=== PATIENT | male | born 1980 | race Caucasian/White ===

== ENCOUNTER 2021-05-21 21:27 | Emergency (ER) | payer MEDICARE, SELFPAY ==
[2021-05-21 21:45] VITALS: BP 132/76; PULSE 87; RESP 18; TEMP 36.3; O2SAT 100; BMI 21.7
[2021-05-21 22:22] LABS: Amphetamines Screen Urine Negative (Negative); Barbiturates Screen Urine Negative (Negative); Benzodiazepines Screen Urine Negative (Negative); Cocaine Screen Urine Negative (Negative); Opiate Screen Urine Negative (Negative); PCP Screen Urine Negative (Negative); THC Screen Urine Negative (Negative)
--- NOTE | 2021-05-21 22:38 | W.ED.PSYCHS ---
HPI - Psych General: Chief Complaint: Psychiatric Symptoms Stated Complaint: schizophrenia Time Seen by Provider: 05/21/21 22:02 Source: patient Mode of arrival: ambulatory Limitations: no limitations History of Present Illness: 41-year-old male states that he was recently dropped off here from [place] about 3 days ago. He states he has a long history of schizophrenia and has been homeless for quite some time. Patient states that police picked him up tonight and brought him in. He states he has chronic schizophrenia states he has been hearing some voices but nothing new he denies any suicidal or homicidal ideations. He states he has been getting cold outside. Associated symptoms: Deny depression Review of Systems Const: Denies: fever(s), chills, body aches or change in appetite Eyes: Denies: blurry vision or eye discomfort ENMT: Denies: throat pain or dental pain Card: Denies: chest pain Resp: Denies: dyspnea GI: Denies: abdominal pain, nausea, vomiting or diarrhea : Denies: dysuria Musc: Denies: neck pain or back pain Skin/Breast: Denies: rash Neuro: Denies: headache(s) Psych: Denies: depression Mauro/Lymph: Denies: easy bruising All/Imm: Denies: urticaria PFSH ED PFSH: Medical History Schizophrenia Social History Smoking and tobacco status: current every day smoker Physical Exam Const: COMMON NORMALS: patient oriented x3 and healthy appearing GENERAL APPEARANCE: disheveled HENMT: COMMON NORMALS: normocephalic and atraumatic HEAD & SCALP: normocephalic and atraumatic Eye: COMMON NORMALS: Equal, round and reactive pupils present and EOMs intact bilaterally PUPIL: Yes Equal, round and reactive pupils present Neck/C-Spine: COMMON NORMALS: full ROM and supple Chest: COMMONS NORMALS: normal inspection of the chest and normal palpation of entire chest wall Resp: COMMON NORMALS: normal respiratory effort, No retractions, No use of accessory muscles and clear to auscultation bilaterally AUSCULTATION: clear to auscultation bilaterally Cardio: COMMON NORMALS: regular rate, regular rhythm and No murmurs present (Cardio) RATE: regular rate RHYTHM: regular rhythm GI: COMMON NORMALS: Normal to inspection, nondistended, normoactive bowel sounds present, Soft to palpation, non-tender and no masses PALPATION: Yes Soft to palpation Extremity: COMMON NORMALS: normal to inspection and full ROM Neuro: COMMON NORMALS: patient oriented x3, moves all extremities and no focal motor deficits Psych: COMMON NORMALS: mental status grossly normal, Normal thought process present and cooperative THOUGHT PROCESS: Normal thought process present Skin: COMMON NORMALS: no rashes or lesions noted and no wounds GENERAL SKIN EXAM: no rashes or lesions noted Course Vital Signs: Vital signs: Vital Signs Temperature 97.4 F L 05/21/21 21:45 Pulse Rate 87 05/21/21 21:45 Respiratory Rate 16 05/21/21 22:53 Blood Pressure 132/76 05/21/21 21:45 Pulse Oximetry 100 05/21/21 21:45 MDM - Psych Medical Decision Making Patient presents here with long history of schizophrenia he is also homeless he is got no suicidal homicidal ideation he appears to be at his baseline he did have him evaluated by psychiatrist Dr. Harris who also agrees he does not meet inpatient criteria patient feels improved is stable for discharge. Lab Data Laboratory Results Urine Opiates Screen Negative ng/mL (Negative) 05/21/21 22:06 Ur Barbiturates Screen Negative ng/mL (Negative) 05/21/21 22:06 Ur Phencyclidine Scrn Negative ng/mL (Negative) 05/21/21 22:06 Ur Amphetamines Screen Negative ng/mL (Negative) 05/21/21 22:06 U Benzodiazepines Scrn Negative ng/mL (Negative) 05/21/21 22:06 Urine Cocaine Screen Negative ng/mL (Negative) 05/21/21 22:06 U Marijuana (THC) Screen Negative ng/mL (Negative) 05/21/21 22:06 Discharge Plan Discharge Patient Disposition: Home Clinical Impression: Schizophrenia, Homelessness Discharge Orders: Discharge ED (Routine); Ordered 05/21/21 Ordered By: Duyen Anguiano Discharge Diet: Advance as tolerated Discharge Activity: Resume usual activity Patient Instructions: Schizophrenia (ED) Coding Level of Care Code ED Pattern Hanger for Macario Baker Exam Comprehensive
[2021-05-21 22:53] VITALS: RESP 16
== END 2021-05-21 22:53 | disposition home or self-care (01) ==
PROVIDERS: Emergency Provider Emergency Medicine
DX: F20.9 Schizophrenia, unspecified (principal); Z59.00 Homelessness unspecified; F17.210 Nicotine dependence, cigarettes, uncomplicated
CPT/HCPCS: 80306; 99281

== ENCOUNTER 2021-05-26 23:31 | Inpatient (IN) | payer MEDICARE, SELFPAY ==
[2021-05-26 23:47] VITALS: BP 151/62; PULSE 105; RESP 18; TEMP 36.8; O2SAT 94; BMI 22.4
--- NOTE | 2021-05-27 00:13 | XRR_ITS ---
PROCEDURE INFORMATION: Exam: XR Left Forearm Exam date and time: 05/27/2021 12:13 AM Age: 41 years old Clinical indication: Swelling; Arm, lower; Left; Additional info: Cellulitis TECHNIQUE: Imaging protocol: XR Left forearm. Views: 2 views. COMPARISON: No relevant prior studies available. FINDINGS: Bones/joints: No acute fracture. No dislocation. No reactive bony changes. Soft tissues: Soft tissue edema and thickening involving the proximal left forearm. Findings may be seen with edema/cellulitis. XR/XR forearm LT 2V [id number] IMPRESSION: Soft tissue edema and thickening involving the proximal left forearm. Findings may be seen with edema/cellulitis.
--- NOTE | 2021-05-27 00:25 | ED.C_ITS ---
HPI - Psych General: Chief Complaint: Psychiatric Symptoms Stated Complaint: Off Meds\Pshciatric Symtpoms Time Seen by Provider: 05/27/21 00:01 Source: patient Mode of arrival: ambulatory Limitations: no limitations History of Present Illness: 41-year-old male who moved here recently from [place] and is homeless. He states he has been having increasing suicidality he was seen here 5 days ago but states has not been able to get in anywhere seen anyone has been out of all of his medicines. He has no specific plan. States he has not been on his meds in months. States he also has a chronic wound to his left forearm he is unsure what had happened he says is been growing in size over the last month as well and is seeing no treatment he has had no fever no pain no drainage Associated symptoms: Reports depression and suicidal ideation Review of Systems Const: Denies: fever(s), chills, body aches or change in appetite Eyes: Denies: blurry vision or eye discomfort ENMT: Denies: throat pain or dental pain Card: Denies: chest pain Resp: Denies: dyspnea GI: Denies: abdominal pain, nausea, vomiting or diarrhea : Denies: dysuria Musc: Denies: neck pain or back pain Skin/Breast: Reports: erythema Neuro: Denies: headache(s) Psych: Reports: depression and suicidal ideation Mauro/Lymph: Denies: easy bruising All/Imm: Denies: urticaria PFSH ED PFSH: Medical History Schizophrenia Social History Smoking and tobacco status: current every day smoker Physical Exam Const: COMMON NORMALS: patient oriented x3 GENERAL APPEARANCE: disheveled HENMT: COMMON NORMALS: normocephalic and atraumatic HEAD & SCALP: normocephalic and atraumatic Eye: COMMON NORMALS: Equal, round and reactive pupils present and EOMs intact bilaterally PUPIL: Yes Equal, round and reactive pupils present Neck/C-Spine: COMMON NORMALS: full ROM and supple Chest: COMMONS NORMALS: normal inspection of the chest and normal palpation of entire chest wall Resp: COMMON NORMALS: normal respiratory effort, No retractions, No use of accessory muscles and clear to auscultation bilaterally AUSCULTATION: clear to auscultation bilaterally Cardio: COMMON NORMALS: regular rate, regular rhythm and No murmurs present (Cardio) RATE: regular rate RHYTHM: regular rhythm GI: COMMON NORMALS: Normal to inspection, nondistended, normoactive bowel sounds present, Soft to palpation, non-tender and no masses PALPATION: Yes Soft to palpation Extremity: COMMON NORMALS: full ROM NARRATIVE EXTREMITY EXAM: Large chronic wound to left forearm roughly 8 to 10 cm slight erythema no drainage Neuro: COMMON NORMALS: patient oriented x3, moves all extremities and no focal motor deficits Psych: COMMON NORMALS: mental status grossly normal and cooperative THOUGHT CONTENT: Yes Suicidality present Skin: COMMON NORMALS: no rashes or lesions noted and no wounds GENERAL SKIN EXAM: no rashes or lesions noted Course Vital Signs: Vital signs: Vital Signs Temperature 98.3 F 05/26/21 23:47 Pulse Rate 105 H 05/26/21 23:47 Respiratory Rate 18 05/26/21 23:47 Blood Pressure 151/62 05/26/21 23:47 Pulse Oximetry 94 05/26/21 23:[address] [facility] - Psych Medical Decision Making Patient presents here with cellulitis to his arm with erythema Dr. Toussaint is seen patient in the ER and agrees that he does need to be admitted for treatment of the cellulitis medically at this time patient is also under 96-hour hold for suicidality and psychiatrist has been consulted. Lab Data : 05/27/21 00:35 05/27/21 00:30 Radiology Impressions Forearm X-Ray 05/27/21 00:13 IMPRESSION: Soft tissue edema and thickening involving the proximal left forearm. Findings may be seen with edema/cellulitis. Laboratory Results WBC 10.3 10^3/uL (4.0-10.0) H 05/27/21 00:35 RBC 3.33 10^6/uL (4.1-5.3) L 05/27/21 00:35 Hgb 9.9 g/dL (11.7-16.6) L 05/27/21 00:35 Hct 30.6 % (42.0-52.0) L 05/27/21 00:35 MCV 91.9 fl (80-94) 05/27/21 00:35 MCH 29.7 pg (28.0-34.0) 05/27/21 00:35 MCHC 32.4 g/dL (30.0-36.0) 05/27/21 00:35 RDW 15.6 % (12.1-15.1) H 05/27/21 00:35 Plt Count 456 10^3/cmm (130-400) H 05/27/21 00:35 MPV 8.1 fL (7.4-10.4) 05/27/21 00:35 Neut % (Auto) 64.6 % 05/27/21 00:35 Lymph % (Auto) 24.3 % 05/27/21 00:35 Hemphill % (Auto) 9.3 % 05/27/21 00:35 Eos % (Auto) 0.9 % 05/27/21 00:35 Baso % (Auto) 0.7 % 05/27/21 00:35 Neut # (Auto) 6.67 10^3/uL (1.8-7.7) 05/27/21 00:35 Lymph # (Auto) 2.5 10^3/uL (0.8-4.8) 05/27/21 00:35 Hemphill # (Auto) 1.0 10^3/uL (0.2-0.9) H 05/27/21 00:35 Eos # (Auto) 0.1 10^3/uL (0.0-0.8) 05/27/21 00:35 Baso # (Auto) 0.1 10^3/uL (0.0-0.1) 05/27/21 00:35 Nucleated RBC % (auto) 0 % 05/27/21 00:35 Nucleated RBCs # 0.0 /100WBC 05/27/21 00:35 Sodium 138 mmol/L (136-145) 05/27/21 00:30 Potassium 4.5 mmol/L (3.5-5.1) 05/27/21 00:30 Chloride 102 mmol/L (98-107) 05/27/21 00:30 Carbon Dioxide 27 mmol/L (22-29) 05/27/21 00:30 Anion Gap 13.5 (5-19) 05/27/21 00:30 BUN 15 mg/dL (6-20) 05/27/21 00:30 Creatinine 0.8 mg/dL (0.7-1.2) 05/27/21 00:30 GFR Calculation 105.5 mL/min (90-130) 05/27/21 00:30 Glucose 99 mg/dL (65-115) 05/27/21:30 Calculated Osmolality 287 mOsm/kg (285-295) 05/27/21 00:30 Calcium 8.7 mg/dL (8.5-10.5) 05/27/21:30 Total Bilirubin 0.2 mg/dL (0.15-1.2) 05/27/21:30 AST 21 U/L (0-40) 05/27/21:30 ALT 16 U/L (0-41) 05/27/21:30 Alkaline Phosphatase 53 IU/L (40-130) 05/27/21:30 Total Protein 6.5 g/dL (6.6-8.7) L 05/27/21:30 Albumin 3.7 g/dL (3.5-5.2) 05/27/21 00:30 Globulin 2.8 g/dL (1.3-4.6) 05/27/21 00:30 Salicylates < 0.3 mg/dL (3-10) L 05/27/21 00:30 Urine Opiates Screen Negative ng/mL (Negative) 05/27/21 00:05 Acetaminophen < 5.0 ug/mL (10-30) L 05/27/21 00:30 Ur Barbiturates Screen Negative ng/mL (Negative) 05/27/21 00:05 Ur Phencyclidine Scrn Negative ng/mL (Negative) 05/27/21 00:05 Ur Amphetamines Screen Negative ng/mL (Negative) 05/27/21 00:05 U Benzodiazepines Scrn Negative ng/mL (Negative) 05/27/21 00:05 Urine Cocaine Screen Negative ng/mL (Negative) 05/27/21 00:05 U Marijuana (THC) Screen Negative ng/mL (Negative) 05/27/21 00:05 Ethyl Alcohol < 10 mg/dL (0-10) 05/27/21 00:30 Discharge Plan Discharge Patient Disposition: Admitted As Inpatient Clinical Impression: Suicidal ideation, Cellulitis Condition: Stable Coding Level of Care Code ED Director Law Enforcement for Macario Fwd Exam Comprehensive
[2021-05-27 00:47] LABS: Basophils # 0.1 10^3/uL (0.0-0.1); Basophils % 0.7 %; Eosinophils # 0.1 10^3/uL (0.0-0.8); Eosinophils % 0.9 %; Hematocrit 30.6 % (42.0-52.0); Hemoglobin 9.9 g/dL (11.7-16.6); Lymphocytes # 2.5 10^3/uL (0.8-4.8); Lymphocytes % 24.3 %; Mean Corpuscular HGB Conc 32.4 g/dL (30.0-36.0); Mean Corpuscular Hemoglobin 29.7 pg (28.0-34.0); Mean Corpuscular Volume 91.9 fl (80-94); Mean Platelet Volume 8.1 fL (7.4-10.4); Monocytes % 9.3 %; Neutrophils # 6.67 10^3/uL (1.8-7.7); Neutrophils % 64.6 %; Nucleated Red Blood Cells % 0 %; Platelet Count 456 10^3/cmm (130-400); Red Blood Count 3.33 10^6/uL (4.1-5.3); Red Cell Distribution Width 15.6 % (12.1-15.1); White Blood Count 10.3 10^3/uL (4.0-10.0)
[2021-05-27 01:02] LABS: Amphetamines Screen Urine Negative (Negative); Barbiturates Screen Urine Negative (Negative); Benzodiazepines Screen Urine Negative (Negative); Cocaine Screen Urine Negative (Negative); Opiate Screen Urine Negative (Negative); PCP Screen Urine Negative (Negative); THC Screen Urine Negative (Negative)
[2021-05-27 01:07] LABS: Alanine Aminotransferase 16 U/L (0-41); Albumin Level 3.7 g/dL (3.5-5.2); Alkaline Phosphatase 53 IU/L (40-130); Anion Gap 13.5 (5-19); Aspartate Amino Transferase 21 U/L (0-40); Blood Urea Nitrogen 15 mg/dL (6-20); Calcium 8.7 mg/dL (8.5-10.5); Carbon Dioxide 27 mmol/L (22-29); Chloride 102 mmol/L (98-107); Globulin 2.8 g/dL (1.3-4.6); Glomerular Filtration Rate 105.5 mL/min (90-130); Glucose 99 mg/dL (65-115); Osmolality Calculated 287 mOsm/kg (285-295); Potassium 4.5 mmol/L (3.5-5.1); Sodium 138 mmol/L (136-145); Total Bilirubin 0.2 mg/dL (0.15-1.2); Total Protein 6.5 g/dL (6.6-8.7)
[2021-05-27 01:13] LABS: Acetaminophen < 5.0 ug/mL (10-30); Alcohol Level < 10 mg/dL (0-10); Salicylate < 0.3 mg/dL (3-10)
[2021-05-27] MEDS: haloperidol inj 5 mg/mL INJ 1 mL IM (02:29)
[2021-05-27] MEDS: LORazepam 2 mg/mL INJ 1 mL IM (02:29)
[2021-05-27] MEDS: acetaminophen 500 mg Tablet 1000 MG PO (02:29)
--- NOTE | 2021-05-27 04:44 | P.HP_ITS ---
Providers/Chief Complaint Admitting Physician: Simone Toussaint MD, hospitalist Chief Complaint: Off Meds\Pshciatric Symtpoms History of Present Illness John Hernandez is a 41 year old male who presented to the emergency department, with suicidal ideation. He has underlying schizophrenia. He was sedated in the emergency department with Haldol and Ativan and cannot participate in his history and physical. From the emergency department physician he is from [place] and has a long history of schizophrenia. There is also concerns about a chronic wound on his left forearm that has some drainage. It is unknown exactly how long it has been present. Review of Systems General: Reports: ROS unobtainable due to medical condition (Currently heavily sedated) Medications/Allergies Allergies Allergy/AdvReac Type Severity Reaction Status Date / Time No Known Allergies Allergy Verified 05/26/21 23:54 PFSH Acute PFSH: Medical History Schizophrenia Social History Smoking and tobacco status: current every day smoker Other PFSH information: Supplemental PFSH Information: Unfortunately family history, rest of his past medical history, social history cannot be reviewed and updated as he is sedated. Vitals/I&O/Wt Last Vital Signs Temp 98.3 F 05/26/21 23:47 Pulse 105 H 05/26/21 23:47 Resp 18 05/26/21 23:47 BP 151/62 05/26/21 23:47 Pulse Ox 94 05/26/21 23:47 Weight last 48 hrs Weight 74.843 kg Physical Exam Narrative: General exam is a sedated male,, who will awaken with vigorous stimulation and goes right back to sleep. HEENT: Pupils equally round. Oropharynx clear. Neck is supple no lymphadenopathy or thyromegaly Cardiovascular slight tachycardia, no murmur Lungs clear no wheezing or crackles Abdomen is soft nontender. Positive bowel sounds. No obvious organomegaly exam is deferred Extremities no cyanosis clubbing or edema, cap refill brisk Skin left forearm with erythema surrounding a central area that appears to be missing quite a bit of skin. Some pus is expressed at the edge. Edema is also noted. Neuro no focal deficits. Data : 05/27/21 00:35 02/15/22 00:30 Other Labs: X-ray of forearm demonstrates no bony abnormality. A&P Assessment and plan (1) Cellulitis: Significant cellulitis left forearm I wonder if his initial injury was a burn. Will need to delineate this when he is more awake. Continue vancomycin, wound care as started in the emergency department Will need wound care as an outpatient Status: Acute (2) Schizophrenia: Psychiatric consultation Will need to get his home medicine list Status: Acute (3) Suicidal ideation: 96-hour hold was initiated in the emergency department Continue sitter Psychiatric consultation Status: Acute (4) Homelessness: Discharge planning will need to be involved Status: Acute Plan Anemia. Check panel, fecal Hemoccult. Initiate Protonix. Full code currently Lovenox for DVT prophylaxis Attestations Medical Necessity Statement*: Will require greater than 2 midnight stay secondary to cellulitis left upper extremity and suicidal ideation. Coding Level of Care Code Acute Developing Machine Operator for Macario Baker Diagnoses Cellulitis L03.90 Schizophrenia F20.9 Suicidal ideation R45.851 Homelessness Z59.00
[2021-05-27] MEDS: vancomycin 1,000 MG in sodium chloride 0.9% 250 ML 250 MG IV ×3 (04:46→20:15)
--- NOTE | 2021-05-27 05:07 | PC.PHAR ---
Vancomycin is dosed at 1000mg IVPB every 8 hours to produce a predicted trough level of 14.45 (population based pharmacokinetic analysis). A trough level has been ordered from the lab to be obtained before the fourth dose to confirm and adjust if needed.
[2021-05-27] MEDS: enoxaparin 40 mg/0.4 mL Syringe SUBCUT (05:26)
[2021-05-27 05:32] LABS: Iron 33 ug/dL (59-158)
[2021-05-27 05:51] LABS: Folate Level 9.5 ng/mL (4.5-32.2)
[2021-05-27 05:52] LABS: Ferritin 47 ng/mL (30-400); Iron 32 ug/dL (59-158); Percent Saturation 11.4 % (20-50); Thyroid Stimulating Hormone 0.96 uIU/mL (0.27-4.20); Total Iron Binding Capacity 279 mcg/dl; Unsaturated Iron Binding 247 ug/dL (112-347); Vitamin B12 426 pg/mL (232-1245)
--- NOTE | 2021-05-27 06:58 | PC.NURSE ---
report given to Angel JADE
--- NOTE | 2021-05-27 07:48 | PC.PHAR ---
pt unable to verify medications-pt would wake up then go right back to sleep and wouldnt answer any questions-no meds show up on ext med history
[2021-05-27] MEDS: LORazepam 2 mg/mL INJ 1 mL IVP (11:37)
[2021-05-27 11:38] VITALS: BP 126/70; PULSE 85; RESP 18; O2SAT 97
--- NOTE | 2021-05-27 13:15 | P.NPUCON_ITS ---
Providers/Reason for Consult Consulting Physican/Specialty*: Zachary Smith MD/Psychiatist Reason for Consult*: Suicidal ideation the patient reports chronic schizoph carolyn. Psych Consult HPI History of Present Illness John Hernandez is a 41 year old male who was admitted for cellulitis. He has the following emergency room report: 41-year-old male who moved here recently from [place] and is homeless.? He states he has been having increasing suicidality he was seen here 5 days ago but states has not been able to get in anywhere seen anyone has been out of all of his medicines.? He has no specific plan.? States he has not been on his meds in months.? States he also has a chronic wound to his left forearm he is unsure what had happened he says is been growing in size over the last month as well and is seeing no treatment he has had no fever no pain no drainage Associated symptoms: Reports depression and suicidal ideation. Unfortunately he just received another 2 mg of Ativan IM and I could not arouse him by calling his name or shaking his shoulder. There was absolutely no respo nse. He is snoring and breathing well. Meds Home Medications and Allergies Home Medications Medication Instructions Recorded Confirmed Last Taken Type Unable to Assess 05/27/21 05/27/21 Unknown History Allergies Allergy/AdvReac Type Severity Reaction Status Date / Time No Known Allergies Allergy Verified 05/26/21 23:54 Current Medications Current Medications Generic Name Dose Route Start Last Admin Trade Name Freq PRN Reason Stop Dose Admin Enoxaparin Sodium 40 mg 05/27/21 05:00 05/27/21 05:26 Enoxaparin 40 Mg/0.4 Ml Syringe SUBCUT 40 mg Q24H SATISH Administration Pantoprazole Sodium 40 mg 05/27/21 09:00 05/27/21 09:[address] 40 Mg Tablet PO Not Given DAILY SATISH PFSH NPU PFSH: Medical History Schizophrenia Social History Smoking and tobacco status: current every day smoker Mental Status Exam MSE Comments: This is a 41-year-old appropriate weight male who appears approximately his stated age. He is asleep and not arousable. psychomotor activity decreased as is appropriate for someone chemically sedated and asleep Speech is not present at this time He is asleep and not arousable Vitals/I&O/Wt Last Vital Signs Temp 98.3 F 05/26/21 23:47 Pulse 85 05/27/21 11:38 Resp 18 05/27/21 11:38 BP 126/70 05/27/21 11:38 Pulse Ox 97 05/27/21 11:38 05/26/21 05/27/21 05/27/21 22:59 06:59 14:59 Intake Total 250 / 250 Balance 250 / 250 Weight last 48 hrs Weight 74.843 kg Data NPU : 05/27/21 00:35 05/27/21 00:30 A&P Assessment and plan (1) Schizophrenia: Status: Acute (2) Cellulitis: Status: Acute (3) Suicidal ideation: Status: Acute (4) Homelessness: Status: Acute Plan This is a 41-year-old male who is reportedly homeless and suicidal. He has chronic schizophrenia and has not been on his medication for months. Hopefully he will be awake soon and we can determine what his outpatient medications are. In the meantime I would focus on antipsychotic medications to keep him calm if he is agitated. I have ordered some Zyprexa Zydis every 4 hours as needed. Ativan and Haldol can be used if he refuses the Zyprexa Zydis or if it is not effective. Attestations NPU Medical Necessity Statement*: Inpatient hospitalization is medically necessary and the clinically appropriate intervention at this time. We will initiate medications and make changes as indicated. He will be in the hospital for over 2 midnights. Likely length of stay 4-6 days Coding Level of Care Code Acute Beef Cattle Grazier for Leonardog Fwd Diagnoses Schizophrenia F20.9 Cellulitis L03.90 Suicidal ideation R45.851 Homelessness Z59.00
--- NOTE | 2021-05-27 13:53 | CTR_ITS ---
PROCEDURE INFORMATION: Exam: CT Left Upper Extremity With Contrast, Forearm Exam date and time: 05/27/2021 1:53 PM Age: 41 years old Clinical indication: Other: Cellulitis. ; Patient HX: Purulent cellulitis to left forearm. Patient known to be aggressive during admission and was sedated prior to exam. Patient unable to put arm back far enough behind head to include all of anatomy within sfov. Scanned with arm by side as a result. Patient also could not stop fidgeting on table. Best scan obtained. TECHNIQUE: Imaging protocol: CT of the Left upper extremity with intravenous contrast was performed. Exam focused on the forearm. Radiation optimization: All CT scans at this facility use at least one of these dose optimization techniques: automated exposure control; mA and/or kV adjustment per patient size (includes targeted exams where dose is matched to clinical indication); or iterative reconstruction. Contrast material: OMNI 300; Contrast volume: 95 ml; Contrast route: INTRAVENOUS (IV); COMPARISON: CR ([facility], ) 05/27/2021 12:31 AM RADIATION DOSE METRICS: Total DLP (mGy-cm): 970.41 FINDINGS: Bones/joints: Severe limitation presumably secondary to scan plane alignment and or motion with severe artifact. Detailed assessment of the soft tissues cannot be determined for subtle edema or variation of density. Soft tissues: Of the images acquired there is no dominant or large soft tissue mass or fluid collection. There is no definite gas. Irregularity at the posterior margin of the olecranon with small adjacent soft tissue calcifications. CT/CT forearm LT w con [id number] IMPRESSION: 1. Severe limitation for detailed soft tissue assessment. 2. No dominant collection of gas or fluid collection. Subtle abnormalities would not be defined. Consider repeat CT with contrast or preferably MRI with contrast if patient's condition allows appropriate imaging. 3. Irregularity of the margin of the olecranon posteriorly with juxtacortical small calcifications. Findings could be degenerative or inflammatory, infectious or destructive to include condition of osteomyelitis. Consider MRI for further assessment.
--- NOTE | 2021-05-27 13:57 | PM.MISC ---
Miscellaneous Note Note: Patient was seen and examined this morning, for left arm I have requested CT just to make sure there is no compartment syndrome or worsening of underlying edema Patient did not cooperate very well for the exam He started cursing and was aggressive I had to leave the room He was repeatedly asking for food tray, ER nurse was updated Appreciate psych recommendations I will notify Dr. Grijalva after CT scan of left forearm For now I will add Zosyn to his current regimen of vancomycin I do see good granulation tissue of his wound base however mild purulence noted around the edges, edges are rolled I did not feel crepitation, severe edema noted No signs of vascular compromise Regular diet DVT prophylaxis Lovenox Olanzapine added by psychiatry
[2021-05-27] MEDS: piperacillin-tazobactam 3.375 GM in sodium chloride 0.9% (plus) 50 ML IV ×2 (15:34→21:32)
[2021-05-27 16:00] VITALS: BP 130/56; PULSE 75; RESP 18; TEMP 36.7; O2SAT 100
[2021-05-27] MEDS: OLANZapine 5 mg ODT PO ×2 (16:00→20:22)
[2021-05-27] MEDS: OLANZapine 10 mg TABLET PO (16:04)
--- NOTE | 2021-05-27 16:26 | PC.NURSE ---
patient arrived on unit.
--- NOTE | 2021-05-27 18:36 | PC.NURSE ---
Per ER nurse Angel, patient pulled IV line from Zosyn and it was wasted.
[2021-05-27 19:48] VITALS: BP 136/79; PULSE 90; RESP 20; TEMP 36.4; O2SAT 95
[2021-05-27 23:24] VITALS: BP 110/62; PULSE 75; RESP 16; TEMP 36.5; O2SAT 95
[2021-05-28] VITALS: BP 130/74; PULSE 92; RESP 21; TEMP 37; O2SAT 99
[2021-05-28] MEDS: ziprasidone 20 mg/mL SDV IM (04:22)
[2021-05-28] MEDS: iohexol 300 mg/mL 100 mL Btl IV (05:27)
[2021-05-28] MEDS: vancomycin 1,000 MG in sodium chloride 0.9% 250 ML 250 MG IV (05:35)
[2021-05-28] MEDS: OLANZapine 5 mg ODT PO ×4 (06:41→20:38)
--- NOTE | 2021-05-28 12:48 | W.PM.NPUPNS ---
Subjective NPU Subjective: Interval history: He is alert this morning. However he was still difficult to interview because he becomes agitated with questions. He says that he needs medications for anxiety, sleep and schizophrenia. When asked what medications he needed he first said marijuana. And he said Xanax and Klonopin. When he told that those would not be appropriate he said that the Zyprexa that he has been receiving has helped him be more calm. He was told that that was schizophrenia and he said he would like to continue taking that. He also said that BuSpar has helped his anxiety in the past. When asked what dose he said 15 mg once a day. He agreed to take 15 mg twice a day which is a more normal dose. He is from [facility]. He said that he never wants to see [place] again. He said that he was here because some friends brought him down here from [employer] and dropped him off in town and then left. He has been here for 2 or 3 weeks. He said that he does not have insurance and does not have a place to stay. The sitter that was with him said that the social sciences professor had talked to him about applying for Medicaid and was going to help him. He was told that we could help him find a place to stay here if he wanted that and he said that he did. He was asked about his cellulitis and he said that had been all taking care of him. He said that he had had 4 bags of antibiotics and took a shower this morning. He says that it is all wrapped up and looking much better. He was concerned about leaving the hospital. He was told that we would give him enough medications to last for at least 1 month after he left. He is concerned about not being able to get medications after 1 month. He seems to be relieved that we were not going to discharge him in the next 2 days and that we would help him get insurance and a place to stay. We will try to get more information tomorrow. Mental Status Exam MSE Comments: This is a 41-year old male who appears approximately his stated age and is easily agitated. He was awake and alert and sitting in his hospital bed with a cup of coffee in his hand. He has a full hadley and is poorly groomed. I could not do a full assessment because he became more agitated with too many questions psychomotor activity mildly increased. Speech is at a regular rate and rhythm, normal volume, good articulation, not pressured. Alert but I decided not to ask orientation questions because he was becoming agitated Attention and concentration appears to be adequate. Memory unable to assess today. Mood appears to be okay. Affect is easily agitated and angry. Thought process is is not very logical. He jumps from 1 thing to another Thought content: I was not able to ask about hallucinations. He appears to be delusional about his cellulitis being treated appropriately and not needing further treatment. He did not offer other delusional material no current suicidal ideation, and no homicidal ideation. Fund of knowledge is difficult to assess. Insight and judgment appear to be poor. Impulse control is poor. Cognition: Patient Appearance: Disheveled/Poor Hygiene Level of Consciousness: Awake and Alert Patient Cognition Impaired: Yes (Erratic) Ability to Follow Directions: Fair Patient Orientation (long list): Name and Birthday Comprehension Ability: Mild Impairment Thought Process: Disorganized Affect: Affect Description: Anxious Behavior: Patient Behavior: Aggressive Speech Pattern: Slurred Vitals/I&O/Wt Last Vital Signs Temp 98.6 F 05/28/21 00:00 Pulse 92 05/28/21 00:00 Resp 21 H 05/28/21 00:00 BP 130/74 05/28/21 00:00 Pulse Ox 99 05/28/21 00:00 05/27/21 05/28/21 05/28/21 22:59 06:59 14:59 Intake Total 1257.917 / 4008.804 8721 / 2777.917 Balance 1257.917 / 4065.393 4287 / 2777.917 Weight last 48 hrs Weight 67.313 kg Weight 74.843 kg Data NPU : 05/27/21 00:35 05/27/21 00:30 A&P Assessment and plan (1) Schizophrenia: Status: Acute (2) Cellulitis: Status: Acute (3) Suicidal ideation: Status: Acute (4) Homelessness: Status: Acute Plan This is a 41-year old male with a diagnosis of schizophrenia who was evidently dropped off here and is homeless and has not been on medications for months. He becomes very agitated very easily. He is agreeable to continue taking the Zyprexa Zydis and would like BuSpar 15 mg twice a day added. I would continue using the Zyprexa Zydis for now and use Ativan IM when necessary. Attestations NPU Medical Necessity Statement*: Inpatient hospitalization is medically necessary and the clinically appropriate intervention at this time. We will initiate medications and make changes as indicated. Coding Level of Care Code Acute Fabricator Special Items for [facility] Fwd Diagnoses Schizophrenia F20.9 Cellulitis L03.90 Suicidal ideation R45.851 Homelessness Z59.00
--- NOTE | 2021-05-28 14:40 | PC.NURSE ---
Notified Dr Kendrick that patient has no IV and refuses to be stuck. he has IV antibiotics ordered. and he has been refusing his IV antibiotics. Per Dr Kendrick, Leave him
--- NOTE | 2021-05-28 14:53 | PM.PN ---
Subjective Subjective: Patient can be transferred to neuropsychiatric unit as he is refusing IV medications, labs and vitals, I will switch his antibiotics to p.o. doxycycline, wet-to-dry dressing with silver sulfadiazine twice daily Spoke with neuropsychiatrist Dr. Basurto, he is okay transferring this patient from [facility] to neuropsychiatric unit today Vitals/I&O/Wt Last Vital Signs Temp 98.6 F 05/28/21 00:00 Pulse 92 05/28/21 00:00 Resp 21 H 05/28/21 00:00 BP 130/74 05/28/21 00:00 Pulse Ox 99 05/28/21 00:00 05/27/21 05/28/21 05/28/21 22:59 06:59 14:59 Intake Total 1257.917 / 8733.693 0385 / 2777.917 Balance 1257.917 / 7629.023 2033 / 2777.917 Weight last 48 hrs Weight 67.313 kg Weight 74.843 kg Physical Exam Narrative: Patient started verbally very aggressive At baseline seems to be very angry Still endorsing suicidal ideation Does not have any suicidal plans I was barely able to examine his left forearm wound, it does show crusting with signs of healing granulation tissue I do not see eschar or necrotic tissue at this point Arm looks swollen however no worsening of hyperemia Breathing well on room air Grossly no focal deficit noted Eating breakfast Data : 05/27/21 00:35 05/27/21 00:30 A&P Assessment and plan (1) Schizophrenia: Status: Acute (2) Suicidal ideation: Status: Acute (3) Homelessness: Status: Acute (4) Cellulitis: Status: Acute Plan Left arm cellulitis Patient is not able to provide any detailed history concern for traumatic injury versus burn We will use silver sulfadiazine wet-to-dry daily dressing change Switch antibiotics to p.o. doxycycline Has not spiked any fever Labs were refused by the patient We will transfer him to neuropsychiatric unit for his bipolar disorder Regular diet DVT prophylaxis on board Hospital service will keep following along, please call us if you have any questions CT scan of left forearm did not show compartment syndrome gas gangrene or necrotizing fasciitis features, he will need wound care follow-up at the time of discharge Attestations Medical Necessity Statement*: Continue medical management Time Spent in Patient Care: As per neuropsychiatrist Coding Level of Care Code Acute Audio/Visual Manager for g Fwd Diagnoses Schizophrenia F20.9 Suicidal ideation R45.851 Homelessness Z59.00 Cellulitis L03.90
[2021-05-28] MEDS: neomycin-poly-bacitracin oint 28 gm 1 APPLIC TOPICAL (16:04)
[2021-05-28] MEDS: silver sulfadiazine cream 1% 50 gm 1 APPLIC TOPICAL (16:04)
--- NOTE | 2021-05-28 16:09 | PC.NURSE ---
patient become agitated and verbally abusive toward staff. patient tried to leave room and was upset that he couldn't go outside. patient threatened harm to staff and patient was given xyprexa.
--- NOTE | 2021-05-28 16:12 | PC.NURSE ---
patient was given 1 bar of soap from his belongings per his request to shower with earlier today.
[2021-05-28] MEDS: BuSPIRONE 10 mg Tablet 15 MG PO (17:36)
[2021-05-28] MEDS: doxycycline 100 mg Tablet PO (17:37)
--- NOTE | 2021-05-28 20:05 | PC.NURSE ---
refused Zyprexa, stated I have had enough today, I will take it in the morning
--- NOTE | 2021-05-28 20:32 | PC.NURSE ---
patient got up and went to bathroom, became hostile toward sitter, cursing at sitter and antagonistic behavior. sitter asked if patient would like bed made while he was going to the bathroom. patient stating well aren't you just fucking nice, you are not my fucking loraine how would you like it if somebody does that to you.
--- NOTE | 2021-05-28 20:39 | PC.NURSE ---
patient asked for nurse and asked about meds for the night, told he has zyprexa if needed and patient asked for it and some snacks.
--- NOTE | 2021-05-29 00:16 | PC.NURSE ---
patient had been sleeping and now awake, sitting in chair and reading bible. patient calm at this time
--- NOTE | 2021-05-29 00:21 | PC.NURSE ---
patient behavior changed from calm and quiet to aggressive and angry, patient antagonizing sitter and after a few minutes behavior changed and patient apologizing to sitter. patient currently back in bed and watching TV
[2021-05-29 04:00] VITALS: BP 150/94; PULSE 73; RESP 18; TEMP 36.4; O2SAT 97
[2021-05-29] MEDS: acetaminophen 325 mg Tablet 650 MG PO ×2 (04:07→09:40)
[2021-05-29 08:00] VITALS: BP 108/70; PULSE 111; RESP 18; TEMP 36.7; O2SAT 96
--- NOTE | 2021-05-29 09:27 | PC.CHAP ---
Pastoral Care Encounter/Spiritual Assessment Type of Contact [] Declined compensation analyst visit [] Patient/Family/Request visit [] Outpatient visit [] Follow-up visit [] Physician referral [] Code/Alert [x] Routine visit [] Staff referral [] Actively dying [] Patient sleeping [] Family support [] [] Out of room [] Palliative care [] [] Receiving care in room [] Pre-surgical visit [] Trauma [] Long length of stay [] ICU visit [] Other: Relational/Emotional Strength [] Patient feels connected with others/family/visitors/staff [] Distress [] Loneliness/isolation [] Abandonment Spirituality of Patient [x Person of Vicki [] Attends Buddhism of their Vicki [x] Believes in Prayer [] Reads Bible or Jainism materials [] There are Spiritual issues to be addressed Nutrition Services Associate Interventions [x] Prayer [x] Active listening [x] Non-anxious presence [] Spiritual/emotional support [] Crisis/trauma care [] Spiritual counseling [] Bereavement support [] Provided bereavement packet [] Provided Bible/devotional materials [] Provided toy/stuffed animal, coloring book to patient or family member [] Provided Communion [] Anointing/[place] [] Salvation [xx] Completed spiritual assessment [] Other: Impact on Illness or Injury [] Angry [] Fearful [] Anxious [] Often cries [] Exhaustion [] Unable to work [] Unable to attend sikhism [] Unable to walk/stand [] Unable to read [] Unable to drive [] Unable to eat/drink [] Unable to sleep [] Unable to be with family [] Patient intubated [] Other: Summary Time spent with patient 10 min
[2021-05-29] MEDS: doxycycline 100 mg Tablet PO ×2 (09:41→18:00)
[2021-05-29] MEDS: pantoprazole DR 40 mg Tablet PO (09:41)
[2021-05-29] MEDS: OLANZapine 5 mg ODT PO ×2 (09:41→23:25)
[2021-05-29] MEDS: amlodipine 10 mg Tablet PO ×2 (09:41→09:42)
[2021-05-29] MEDS: BuSPIRONE 10 mg Tablet 15 MG PO ×2 (09:41→17:59)
--- NOTE | 2021-05-29 11:36 | PC.NURSE ---
Patient transferred to NPU. Report given. Belongings accounted for. Security came up to transfer patient.
[2021-05-29 12:42] VITALS: BP 124/76; PULSE 80; RESP 24; TEMP 36.8; O2SAT 100
--- NOTE | 2021-05-29 12:55 | PM.MISC ---
Miscellaneous Note Note: This morning patient stated that he is feeling fine, his wound looked much better, I did not see any dirt or any purulent drainage around it he took shower yesterday, today he will go to NPU Dressing: Hydrofera Blue once daily Doxycycline antibiotic for at least 10 days Outpatient wound care follow-up will be needed Patient was laying supine Saturating well on room air Slightly more cooperative today as compared to yesterday He did not become aggressive with me One-to-one supervision Transfer to neuropsych
--- NOTE | 2021-05-29 13:06 | PC.NURSE ---
ADMISSION 41-year-old male who moved here recently from [place] and is homeless. He states he has been having increasing suicidality he was seen here 5 days ago but states has not been able to get in anywhere seen anyone has been out of all of his medicines. He has no specific plan. States he has not been on his meds in months. States he also has a chronic wound to his left forearm he is unsure what had happened he says is been growing in size over the last month as well and is seeing no treatment he has had no fever no pain no drainage Associated symptoms: Reports depression and suicidal ideation Upon arrival to NPU patient is cooperative. Answers some questions. Thought process is disorganized and is easily distracted. Unable to answer what brought him in, no awareness to situation surrounding admit. Denies AVH but appears to respond to internal stimuli at times such as laughing out inappropriately and distraction. Denies SI/HI. Has wounds over body and refused to allow medsurg nurse to wrap open would on left forearm prior to coming to NPU. Denies being on medications prior to admission or having outpatient care. Now in room, reading Bible calmly.
[2021-05-29] MEDS: nicotine 2 mg Gum BUCCAL ×2 (13:22→16:02)
[2021-05-29 14:00] VITALS: BP 124/76; PULSE 80; RESP 24; TEMP 36.8
[2021-05-29] MEDS: silver sulfadiazine cream 1% 50 gm 1 APPLIC TOPICAL (18:01)
--- NOTE | 2021-05-29 20:51 | PC.NURSE ---
Patient allowed this nurse to dress his wound on the left outer forearm. The wound was cleansed with normal saline and patted dry. Silvadene cream was applied to the inner portion that is raw. Neomycin was applied to the outer ring which was scabbed. A non-stick dressing was applied and paper tape was used for security. Patient also has a sore on his right ramsey, two spots on his right hand and one spot on his left. These had neomycin applied and left open to air. Patient tolerated well.
[2021-05-29] MEDS: trazodone 50 mg Tablet PO (23:25)
--- NOTE | 2021-05-29 23:25 | PC.NURSE ---
Patient was pacing the halls rambling. He came up to the nurses station asking where his night meds were. Staff let him know he did not have anything scheduled but we could give him something to help him sleep. At first he said he did not want anything and walked back to his room. He shut the door. The information security specialist was on the unit and he opened the door for him and let him know it needed to stay open. He came back to the nurses station asking for the medication and food. He was given a snack and Zyprexa 5mg and Trazadone 50mg. He went back to his room.
[2021-05-30] MEDS: nicotine 2 mg Gum BUCCAL ×2 (00:57→08:18)
[2021-05-30 06:00] VITALS: BP 119/78; PULSE 67; RESP 20; O2SAT 99
[2021-05-30] MEDS: doxycycline 100 mg Tablet PO (08:18)
[2021-05-30] MEDS: BuSPIRONE 10 mg Tablet 15 MG PO (08:18)
[2021-05-30] MEDS: OLANZapine 5 mg ODT PO (08:18)
--- NOTE | 2021-05-30 08:35 | P.NPUHP_ITS ---
Providers/Chief Complaint Admitting Physician: Simone Toussaint MD Chief Complaint: Off Meds\Pshciatric Symtpoms HPI NPU History of Present Illness John Hernandez is a 41 year old male was admitted to our emergency department with the following report: John Hernandez is a 41 year old male who presented to the emergency department, with suicidal ideation. He has underlying schizophrenia. He was sedated in the emergency department with Haldol and Ativan and cannot participate in his history and physical. From the emergency department physician he is from [place] and has a long history of schizophrenia. There is also concerns about a chronic wound on his left forearm that has some drainage. It is unknown exactly how long it has been present. He was treated with IV antibiotics for 2 days on medical surgical floor and emergency room. He was changed to oral antibiotics and dressing changes and transferred to the neuropsychiatry unit. He was admitted to the neuropsychiatry unit for definitive treatment of these issues. He says that he has had schizophrenia and been hospitalized multiple times starting at around age 18. He has been on many antipsychotic medications and feels that Zyprexa is the 1 that is best for him. He denies side effects from it. He is also been on buspirone and feels like it is good for his anxiety. Marijuana, Xanax and Ativan also helps his anxiety. He understands that those are not long-term options. He is from [facility] but does not want to go back there. He would like for us to find him a place to stay here. He also wants us to look into food stamps for him. He says that he gets auditory hallucinations and paranoia and delusions when he is his psychotic from his schizophrenia. He says that they are much better now that he is on the olanzapine. Says that he does not hear voices now. He denies being paranoid. Meds NPU Home Medications Medication Instructions Recorded Confirmed Last Taken Type No Known Home Medications 05/27/21 05/27/21 Unknown History Allergies Allergy/AdvReac Type Severity Reaction Status Date / Time No Known Allergies Allergy Verified 05/26/21 23:54 PFSH NPU PFSH: Medical History Schizophrenia Social History Smoking and tobacco status: current every day smoker Mental Status Exam MSE Comments: This is a thin 41-year-old male with a full hadley and fair grooming who appears approximately his stated age and is in no acute distress. He is generally pleasant and cooperative with the evaluation now. He did not become agitated as he did when he was on the medical surgical floor. psychomotor activity is normal. Speech is at a regular rate and rhythm, normal volume, good articulation, not pressured. Alert, oriented X3 Attention and concentration appear to be normal. Memory is intact Mood is good. Affect is mostly euthymic. He had a for about the last thing I mention something about marijuana, Xanax and Ativan. Thought process is logical and goal-directed. Thought content: Denies auditory and visual hallucinations. No delusions or paranoia are noted. No current suicidal ideation, and no homicidal ideation. Fund of knowledge is average or possibly reduced Insight and judgment appear to be poor. Impulse control is poor. Vitals/I&O/Wt Last Vital Signs Temp 98.2 F 05/29/21 14:00 Pulse 67 05/30/21 06:00 Resp 20 H 05/30/21 06:00 BP 119/78 05/30/21 06:00 Pulse Ox 99 05/30/21 06:00 05/29/21 05/30/21 05/30/21 22:59 06:59 14:59 Intake Total 240 / 240 Balance 240 / 240 Data NPU : 05/27/21 00:35 05/27/21 00:30 A&P Assessment and plan (1) Schizophrenia: Status: Acute (2) Suicidal ideation: Status: Acute (3) Cellulitis: Status: Acute Plan This is a 41-year old male who reports a 20 something year history of schizophrenia with multiple hospitalizations. He has not been on medication for some time and was quite psychotic and agitated in the emergency room and when admitted to the medical surgical floor Plan: 1. We will continue Zyprexa Zydis as needed as well as adding 10 mg at bedtime. Continue BuSpar 15 mg twice a day. We will have to wait until his Medicaid is approved before he can have a long-term injectable olanzapine. 2. Continue every 15 minute checks for safety. 3. Encourage individual, group and milieu therapies. 4. Encourage sober living treatment after discharge at the highest level of care to which he is willing to commit. 5. We will monitor for safety for himself in the community prior to discharge. Involuntary Hold Information 96 Hour Hold: 96 Hour Involuntary Admission: Yes 96 Hour Hold Ending Date: 06/02/21 96 Hour Hold Ending Time: 02:24 Attestations NPU Medical Necessity Statement*: Inpatient hospitalization is medically necessary and the clinically appropriate intervention at this time. We will initiate medications and make changes as indicated. He will be in the hospital for over 2 midnights. Likely length of stay 4-6 days Coding Level of Care Code Acute Filling Winder for g Fwd Diagnoses Schizophrenia F20.9 Suicidal ideation R45.851 Cellulitis L03.90
[2021-05-30] MEDS: acetaminophen 325 mg Tablet 650 MG PO ×2 (09:06→20:19)
[2021-05-30] MEDS: pantoprazole DR 40 mg Tablet PO (09:50)
[2021-05-30] MEDS: amlodipine 10 mg Tablet PO (09:50)
--- NOTE | 2021-05-30 10:00 | PC.NURSE ---
PRN- Patient up this morning. Cooperative but appears tense. Is paranoid about medications. Nurse opened all medication in front of patient per patient request. Initially refused Amlodipine and Protonix, stating he did not need them. Did agree to take a Zyprexa Zydis PRN at that time. Zydis effective. Patient returned to nurses' station and requested to take meds that were initially refused. Patient calm after, remaining mostly to room this morning.
[2021-05-30 14:00] VITALS: PULSE 78; RESP 18; TEMP 36.3; O2SAT 97
--- NOTE | 2021-05-30 14:59 | PC.NURSE ---
Agitation Patient came to nurses station, demanding to speak to Dr. When informed that Dr is off unit and asked if could verbalize needs to nurse became more agitated, stated that he did not want to talk to this nurse. Walked away at that time. Came back to nurses station agitated again. When another patient came to nurses station, patient became paranoid about that person. Stating that that person was making sly remarks to him and trying him. Staff intervened to separate patients. This patient remained at station with staff trying to redirect thought process. Patient resistant to redirection, refused to talk to director about his needs. Refused all offered PRN medications. Patient then calmed quickly and went to group. Staff monitored closely and patient remained calm.
[2021-05-30 20:14] VITALS: BP 122/71; PULSE 81; RESP 18; TEMP 37.2; O2SAT 99
[2021-05-30] MEDS: OLANZapine 10 mg ODT PO (20:14)
--- NOTE | 2021-05-30 23:38 | PC.NURSE ---
patient refused to let this reported apply medication or redress the wound. he became very agitated when asked about the dressing or the wound. stated he knew how to take care of it and that his red blood cells were clotting and doing their job.
--- NOTE | 2021-05-31 07:01 | W.PM.NPUPNS ---
Subjective NPU Subjective: Interval history: He says that he is doing much better. The hallucinations and paranoia are much better. He also did not have nightmares last night. He slept well last night. He has give the daytime Zyprexa could be increased. He took Zyprexa 10 mg at bedtime last night and the Zydis once during the day. He had taken the Zydis twice the day before and 4 times a day before that. Mental Status Exam MSE Comments: This is a thin 41-year-old male with a full hadley and fair grooming who appears approximately his stated age and is in no acute distress. He is generally pleasant and cooperative with the evaluation now. psychomotor activity is normal. Speech is at a regular rate and rhythm, normal volume, good articulation, not pressured. Alert, oriented X3 Attention and concentration appear to be normal. Memory is intact Mood is good. Affect is mostly euthymic. Thought process is logical and goal-directed. Thought content: Denies auditory and visual hallucinations. No delusions or paranoia are noted. No current suicidal ideation, and no homicidal ideation. Fund of knowledge is average or possibly reduced Insight and judgment appear to be poor. Impulse control is poor. Cognition: Patient Appearance: Appropriate Level of Consciousness: Awake and Alert Patient Cognition Impaired: Yes (Erratic) Ability to Follow Directions: Fair Patient Orientation (long list): Person, Place, Name, Age and Birthday Comprehension Ability: Mild Impairment Hallucination Type: None Delusion Description: Paranoid Ideation Thought Process: Circumstantial and Disorganized Affect: Affect Description: Flat Behavior: Patient Behavior: Irritable Speech Pattern: Clear Vitals/I&O/Wt Last Vital Signs Temp 98.9 F 05/30/21 20:14 Pulse 81 05/30/21 20:14 Resp 18 05/30/21 20:14 BP 122/71 05/30/21 20:14 Pulse Ox 99 05/30/21 20:14 Data NPU : 05/27/21 00:35 05/27/21 00:30 A&P Assessment and plan (1) Schizophrenia: Status: Acute (2) Suicidal ideation: Status: Acute (3) Cellulitis: Status: Acute Plan This is a 41-year old male who reports a 20 something year history of schizophrenia with multiple hospitalizations. He has not been on medication for some time and was quite psychotic and agitated in the emergency room and when admitted to the medical surgical floor Plan: 1. We will continue Zyprexa Zydis as needed as well as adding 10 mg at bedtime. Continue BuSpar 15 mg twice a day. We will have to wait until his Medicaid is approved before he can have a long-term injectable olanzapine. 2. Continue every 15 minute checks for safety. 3. Encourage individual, group and milieu therapies. 4. Encourage sober living treatment after discharge at the highest level of care to which he is willing to commit. 5. We will monitor for safety for himself in the community prior to discharge. Involuntary Hold Information 96 Hour Hold: 96 Hour Involuntary Admission: Yes 96 Hour Hold Ending Date: 06/02/21 96 Hour Hold Ending Time: 02:24 Attestations NPU Medical Necessity Statement*: Inpatient hospitalization is medically necessary and the clinically appropriate intervention at this time. We will initiate medications and make changes as indicated. Coding Level of Care Code Acute Solution Make Up Operator for Macario Baker Diagnoses Schizophrenia F20.9 Suicidal ideation R45.851 Cellulitis L03.90
[2021-05-31] MEDS: amlodipine 10 mg Tablet PO (08:51)
[2021-05-31] MEDS: nicotine 2 mg Gum BUCCAL (08:51)
[2021-05-31] MEDS: doxycycline 100 mg Tablet PO (08:51)
[2021-05-31] MEDS: BuSPIRONE 10 mg Tablet 15 MG PO ×2 (08:51→19:23)
[2021-05-31] MEDS: OLANZapine 5 mg ODT PO (08:52)
[2021-05-31] MEDS: pantoprazole DR 40 mg Tablet PO (08:52)
[2021-05-31 14:00] VITALS: BP 122/71; PULSE 81; RESP 18; TEMP 37.2; O2SAT 99
--- NOTE | 2021-05-31 16:42 | PC.NURSE ---
Has been isolative to room mostly but has been calm when up. Continued to refuse staff to assess or dress wound to arm. Did request clean bandages to change by self. Staff offered assistance but patient refused. Staff requested to see wound but patient also refused that.
[2021-05-31] MEDS: OLANZapine 10 mg ODT PO (19:24)
--- NOTE | 2021-05-31 19:26 | PC.NURSE ---
PT INITIALLY REFUSED 1800 MEDICATIONS BUT RETURNED AND STATED HE WANTED BUSPAR AND ZYPREXA. REFUSED DOXY. DR FAY NOTIFED THAT PATIENT WANTED HS ZYPREXA EARLY. DR APPROVED GIVING AT THAT TIME. PATIENT DID TAKE HS ZYPREXA AND BUSPAR.
[2021-05-31 21:41] VITALS: BP 119/76; PULSE 98; RESP 18; TEMP 36.7; O2SAT 99
--- NOTE | 2021-06-01 08:10 | W.PM.NPUPNS ---
Subjective NPU Subjective: Interval history: he is irritable this morning. He says that he is tired of being lied to and fked over. He says that he does not understand why he cannot go outside and smoke. He says that he knows that there are ashtrays around the facility and that the employees go outside and smoke. He said that he wants his miniature Bible. He also asked if we could call the skilled nursing today and ask if they had a bed. He was told that the people that are working today do not know what the 7th grade social studies teacher has been working on as far as a place for him to stay. We do not know what arrangements he has made for outpatient treatment. He has had 1 dose of Zyprexa Zydis each of the last 2 days. Mental Status Exam MSE Comments: This is a thin 41-year-old male with a full hadley and fair grooming who appears approximately his stated age and is in no acute distress. He is more irritable again today. psychomotor activity is normal. Speech is at a regular rate and rhythm, normal volume, good articulation, not pressured. Alert, oriented X3 Attention and concentration appear to be normal. Memory is intact Mood is angry this morning. Affect is dysphoric. Thought process is logical and goal-directed. Thought content: Denies auditory and visual hallucinations. No delusions or paranoia are noted. No current suicidal ideation, and no homicidal ideation. Fund of knowledge is average or possibly reduced Insight and judgment appear to be poor. Impulse control is poor. Cognition: Patient Appearance: Appropriate Level of Consciousness: Awake and Alert Patient Cognition Impaired: Yes (Erratic) Ability to Follow Directions: Fair Patient Orientation (long list): Person, Place, Time, Name, Age and Year Comprehension Ability: Mild Impairment Hallucination Type: None Delusion Description: Not Present Thought Process: Appropriate Affect: Affect Description: Appropriate Behavior: Patient Behavior: Appropriate Speech Pattern: Appropriate Vitals/I&O/Wt Last Vital Signs Temp 98.0 F 05/31/21 21:41 Pulse 98 05/31/21 21:41 Resp 18 05/31/21 21:41 BP 119/76 05/31/21 21:41 Pulse Ox 99 05/31/21 21:41 Weight last 48 hrs Weight 69.4 kg Weight 69.4 kg Data NPU : 05/27/21 00:35 05/27/21 00:30 A&P Assessment and plan (1) Schizophrenia: Status: Acute (2) Suicidal ideation: Status: Acute (3) Cellulitis: Status: Acute Plan This is a 41-year old male who reports a 20 something year history of schizophrenia with multiple hospitalizations. He has not been on medication for some time and was quite psychotic and agitated in the emergency room and when admitted to the medical surgical floor Plan: 1. We will continue Zyprexa Zydis as needed as well as adding 10 mg at bedtime. Continue BuSpar 15 mg twice a day. We will have to wait until his Medicaid is approved before he can have a long-term injectable olanzapine. 2. Continue every 15 minute checks for safety. 3. Encourage individual, group and milieu therapies. 4. Encourage sober living treatment after discharge at the highest level of care to which he is willing to commit. 5. We will monitor for safety for himself in the community prior to discharge. Involuntary Hold Information 96 Hour Hold: 96 Hour Involuntary Admission: Yes 96 Hour Hold Ending Date: 06/02/21 96 Hour Hold Ending Time: 02:24 Attestations NPU Medical Necessity Statement*: Inpatient hospitalization is medically necessary and the clinically appropriate intervention at this time. We will initiate medications and make changes as indicated. Coding Level of Care Code Acute Assistant Merchandiser for Macario Baker Diagnoses Schizophrenia F20.9 Suicidal ideation R45.851 Cellulitis L03.90
[2021-06-01] MEDS: pantoprazole DR 40 mg Tablet PO (08:39)
[2021-06-01] MEDS: doxycycline 100 mg Tablet PO ×2 (08:39→18:11)
[2021-06-01] MEDS: amlodipine 10 mg Tablet PO (08:39)
[2021-06-01] MEDS: OLANZapine 5 mg ODT PO (08:39)
[2021-06-01] MEDS: BuSPIRONE 10 mg Tablet 15 MG PO ×2 (08:39→18:11)
[2021-06-01] MEDS: nicotine 2 mg Gum BUCCAL (08:41)
--- NOTE | 2021-06-01 10:48 | PC.NURSE ---
IN ROOM. CALM AND COOPERATIVE AT THIS TIME. HAS BEEN SEEN TO LAUGH OUT INAPPROPRIATLEY AND APPEAR TO RETURN TO INTERNAL STIMULI. DID TAKE PRN ZYDIS WITH MORNING MEDS. TOOK ALL AM MEDS WITH THE EXCEPTION OF SILVIDINE CREAM FOR ARM. CONTINUES TO ALLOW NURSING TO ASSESS ARM. BANDAGE IS C/D/I.
[2021-06-01 14:00] VITALS: RESP 18
--- NOTE | 2021-06-01 15:30 | PC.NURSE ---
patient refused vital signs
[2021-06-01] MEDS: acetaminophen 325 mg Tablet 650 MG PO (18:12)
[2021-06-02] MEDS: acetaminophen 325 mg Tablet 650 MG PO (03:41)
[2021-06-02 06:38] VITALS: BP 126/74; PULSE 76; RESP 18; TEMP 36.8; O2SAT 96
[2021-06-02] MEDS: doxycycline 100 mg Tablet PO (08:14)
[2021-06-02] MEDS: OLANZapine 5 mg ODT PO (08:15)
[2021-06-02] MEDS: BuSPIRONE 10 mg Tablet 15 MG PO (08:15)
[2021-06-02] MEDS: amlodipine 10 mg Tablet PO (08:15)
[2021-06-02] MEDS: pantoprazole DR 40 mg Tablet PO (08:15)
--- NOTE | 2021-06-02 08:15 | P.NPUDS_ITS ---
Diagnoses at Discharge Discharge Diagnosis (1) Schizophrenia: Status: Acute (2) Suicidal ideation: Status: Acute (3) Cellulitis: Status: Acute Reason for Visit Reason for Visit: Off Meds\Pshciatric Symtpoms Brief History: 41-year-old male who moved here recently from [place] and is homeless.? He states he has been having increasing suicidality he was seen here 5 days ago but states has not been able to get in anywhere seen anyone has been out of all of his medicines.? He has no specific plan.? States he has not been on his meds in months.? States he also has a chronic wound to his left forearm he is unsure what had happened he says is been growing in size over the last month as well and is seeing no treatment he has had no fever no pain no drainage Associated symptoms: Reports depression and suicidal ideation He is alert this morning.? However he was still difficult to interview because he becomes agitated with questions.? He says that he needs medications for anxiety, sleep and schizophrenia.? When asked what medications he needed he first said marijuana.? And he said Xanax and Klonopin.? When he told that those would not be appropriate he said that the Zyprexa that he has been receiving has helped him be more calm.? He was told that that was schizophrenia and he said he would like to continue taking that.? He also said that BuSpar has helped his anxiety in the past.? When asked what dose he said 15 mg once a day.? He agreed to take 15 mg twice a day which is a more normal dose.? He is from [facility].? He said that he never wants to see [place] again.? He said that he was here because some friends brought him down here from [place] and dropped him off in town and then left.? He has been here for 2 or 3 weeks.? He said that he does not have insurance and does not have a place to stay.? The sitter that was with him said that the social science instructor had talked to him about applying for Medicaid and was going to help him.? He was told that we could help him find a place to stay here if he wanted that and he said that he did.? He was asked about his cellulitis and he said that had been all taking care of him.? He said that he had had 4 bags of antibiotics and took a shower this morning.? He says that it is all wrapped up and looking much better.? He was concerned about leaving the hospital.? He was told that we would give him enough medications to last for at least 1 month after he left.? He is concerned? about not being able to get med ications after 1 month.? He seems to be relieved that we were not going to discharge him in the next 2 days and that we would help him get insurance and a place to stay.? We will try to get more information tomorrow. Hospital Course Hospital Course He slowly acclimated to the individual, group and milieu therapies provided. He was started on as needed olanzapine Zydis 5 mg. He was changed over to olanzapine 15 mg at bedtime. He had a good response and said that it was very good medicine for him. He also wanted BuSpar 15 mg twice a day which she has taken previously. He said that was very helpful for his anxiety. He tolerated these doses and showed steady improvement during his stay. He was able to contract for safety outside hospital prior to discharge. During the hospitalization, patient had routine laboratory studies which were within normal limits except for few outliers. Additionally there was a general medical evaluation which was also within normal limits and revealed no new acute processes. Discharge Summary: At the time of discharge, lethality was denied and psychosis was resolving. Mood and anxiety were well managed. Patient endorsed a plan to follow-up with the aftercare recommendations of the treatment team. Patient was evaluated and deemed to be absent credible lethality, and had achieved the maximum benefit from an inpatient hospitalization, so was discharged. Involuntary Hold Information 96 Hour Hold: 96 Hour Involuntary Admission: Yes 96 Hour Hold Ending Date: 06/02/21 96 Hour Hold Ending Time: 02:24 Mental Status Exam MSE Comments: This is a thin 41-year-old male with a full hadley and fair grooming who appears approximately his stated age and is in no acute distress. He is more irritable again today. psychomotor activity is normal. Speech is at a regular rate and rhythm, normal volume, good articulation, not pressured. Alert, oriented X3 Attention and concentration appear to be normal. Memory is intact Mood is angry this morning. Affect is dysphoric. Thought process is logical and goal-directed. Thought content: Denies auditory and visual hallucinations. No delusions or paranoia are noted. No current suicidal ideation, and no homicidal ideation. Fund of knowledge is average or possibly reduced Insight and judgment appear to be poor. Impulse control is poor. Cognition: Patient Appearance: Appropriate Level of Consciousness: Awake and Alert Patient Cognition Impaired: Yes (Erratic) Ability to Follow Directions: Fair Patient Orientation (long list): Person, Place, Time, Name, Age and Year Comprehension Ability: Mild Impairment Hallucination Type: None Delusion Description: Not Present Thought Process: Appropriate Affect: Affect Description: Appropriate Behavior: Patient Behavior: Appropriate Speech Pattern: Appropriate Discharge Data Studies Completed and Pending: Completed Studies During Hospitalization Category [place] [id number] Urgent Cat Scan 05/27/21 13:53 Completed XR forearm LT 2V [id number] Stat Exams 05/27/21 00:13 Completed Pending at discharge Category Date Time Status Fecal Occult Bloo d [Immunochemical Fecal OCB] Routine Lab 05/27/21 04:50 Uncollected Radiology Impressions Forearm X-Ray 05/27/21 00:13 IMPRESSION: Soft tissue edema and thickening involving the proximal left forearm. Findings may be seen with edema/cellulitis. Forearm CT 05/27/21 13:53 IMPRESSION: 1. Severe limitation for detailed soft tissue assessment. 2. No dominant collection of gas or fluid collection. Subtle abnormalities would not be defined. Consider repeat CT with contrast or preferably MRI with contrast if patient's condition allows appropriate imaging. 3. Irregularity of the margin of the olecranon posteriorly with juxtacortical small calcifications. Findings could be degenerative or inflammatory, infectious or destructive to include condition of osteomyelitis. Consider MRI for further assessment. Laboratory Results WBC 10.3 10^3/uL (4.0 -10.0) H 05/27/21 00:35 RBC 3.33 10^6/uL (4.1 -5.3) L 05/27/21 00:35 Hgb 9.9 g/dL (11.7-16 .6) L 05/27/21 00:35 Hct 30.6 % (42.0-52.0 ) L 05/27/21 00:35 MCV 91.9 fl (80-94) 05/27/21 00:35 MCH 29.7 pg (28.0-34. 0) 05/27/21 00:35 MCHC 32.4 g/dL (30.0-3 6.0) 05/27/21 00:35 RDW 15.6 % (12.1-15.1 ) H 05/27/21 00:35 Plt Count 456 10^3/cmm (130 -400) H 05/27/21 00:35 MPV 8.1 fL (7.4-10.4) 05/27/21 00:35 Neut % (Auto) 64.6 % 05/27/21 00:35 Lymph % (Auto) 24.3 % 05/27/21 00:35 Finney % (Auto) 9.3 % 05/27/21 00:35 Eos % (Auto) 0.9 % 05/27/21 00:35 Baso % (Auto) 0.7 % 05/27/21 00:35 Neut # (Auto) 6.67 10^3/uL (1.8 -7.7) 05/27/21 00:35 Lymph # (Auto) 2.5 10^3/uL (0.8- 4.8) 05/27/21 00:35 Finney # (Auto) 1.0 10^3/uL (0.2- 0.9) H 05/27/21 00:35 Eos # (Auto) 0.1 10^3/uL (0.0- 0.8) 05/27/21 00:35 Baso # (Auto) 0.1 10^3/uL (0.0- 0.1) 05/27/21 00:35 Nucleated RBC % (a uto) 0 % 05/27/21 00:35 Nucleated RBCs # 0.0 /100WBC 05/27/21 00:35 Sodium 138 mmol/L (136-1 45) 05/27/21 00:30 Potassium 4.5 mmol/L (3.5-5 .1) 05/27/21 00:30 Chloride 102 mmol/L (98-10 7) 05/27/21 00:30 Carbon Dioxide 27 mmol/L (22-29) 05/27/21 00:30 Anion Gap 13.5 (5-19) 05/27/21 00:30 BUN 15 mg/dL (6-20) 05/27/21 00:30 Creatinine 0.8 mg/dL (0.7-1. 2) 05/27/21 00:30 GFR Calculation 105.5 mL/min (90- 130) 05/27/21 00:30 Glucose 99 mg/dL (65-115) 05/27/21 00:30 Calculated Osmolal ity 287 mOsm/kg (285- 295) 05/27/21 00:30 Calcium 8.7 mg/dL (8.5-10 .5) 05/27/21 00:30 Iron 32 ug/dL (59-158) L 05/27/21:30 Iron 33 ug/dL (59-158) L 05/27/21:30 TIBC 279 mcg/dl 05/27/21: % Saturation 11.4 % (20-50) L 05/27/21 00:30 Unsat Iron Binding 247 ug/dL (112-34 7) 05/27/21:30 Ferritin 47 ng/mL (30-400) 05/27/21:30 Total Bilirubin 0.2 mg/dL (0.15-1 .2) 05/27/21:30 AST 21 U/L (0-40) 05/27/21:30 ALT 16 U/L (0-41) 05/27/21 00:30 Alkaline Phosphata se 53 IU/L (40-130) 05/27/21 00:30 Total Protein 6.5 g/dL (6.6-8.7 ) L 05/27/21:30 Albumin 3.7 g/dL (3.5-5.2 ) 05/27/21:30 Globulin 2.8 g/dL (1.3-4.6 ) 05/27/21 00:30 Vitamin B12 426 pg/mL (232-12 45) 05/27/21 00:30 Folate 9.5 ng/mL (4.5-32 .2) 05/27/21 00:30 TSH 0.96 uIU/mL (0.27 -4.20) 05/27/21 00:30 Salicylates < 0.3 mg/dL (3-10 ) L 05/27/21 00:30 Urine Opiates Scre en Negative ng/mL (N egative) 05/27/21 00:05 Acetaminophen < 5.0 ug/mL (10-3 0) L 05/27/21 00:30 Ur Barbiturates Sc reen Negative ng/mL (N egative) 05/27/21 00:05 Ur Phencyclidine S crn Negative ng/mL (N egative) 05/27/21 00:05 Ur Amphetamines Sc reen Negative ng/mL (N egative) 05/27/21 00:05 U Benzodiazepines Scrn Negative ng/mL (N egative) 05/27/21 00:05 Urine Cocaine Scre en Negative ng/mL (N egative) 05/27/21 00:05 U Marijuana (THC) Screen Negative ng/mL (N egative) 05/27/21 00:05 Ethyl Alcohol < 10 mg/dL (0-10) 05/27/21 00:30 Vitals: Last Vital Signs Temp 98.3 F 06/02/21 06:38 Pulse 76 06/02/21 06:38 Resp 18 06/02/21 06:38 BP 126/74 06/02/21 06:38 Pulse Ox 96 06/02/21 06:38 Discharge Plan Discharge Patient Disposition: Home Condition: Stable Prescriptions: New buspirone 10 mg Tablet 15 mg PO BID 30 Days Qty: 60 1RF olanzapine 15 mg tablet 15 mg PO BEDTIME 30 Days 1RF doxycycline monohydrate 100 mg Tablet 100 mg PO BID 7 Days Qty: 14 0RF Discharge Orders: Discharge Order (Routine); Ordered 06/02/21 Ordered By: Zachary Smith Referrals: [facility] [Outside] Discharge Diet: Regular Discharge Activity: Resume usual activity Patient Instructions: Opioid Safety Discharge Attestations NPU Time Spent in Discharge Care*: less than 30 min Specific Discharge Activities: Specific discharge activities: educating patient, discussing with rn field case manager/social workers/dc planners, documenting/other paperwork and evaluating patient/reviewing data Coding Level of Care Code Acute Chg FW DC note Diagnoses Schizophrenia F20.9 Suicidal ideation R45.851 Cellulitis L03.90
[2021-06-02 09:30] VITALS: BP 126/74; PULSE 76; RESP 18; TEMP 36.8; O2SAT 96
--- NOTE | 2021-06-02 09:30 | PC.OT ---
OT EVALUATION ORDERS RECEIVED. PATIENT CURRENTLY HAS A DISCHARGE SUMMARY IN CHART AND PER NURSING IS TO BE DISCHARGED TODAY. WILL HOLD EVALUATION AT THIS TIME.
--- NOTE | 2021-06-07 09:59 | DCPLANNER ---
crew manager had message to help patient with homelessness - patient was admitted to hospital.
== END 2021-06-02 09:44 | disposition home or self-care (01) | DRG 603 ==
LOC: ER 05-27 04:41 → MEDSURG 05-27 14:43 → NP 05-29 12:11
PROVIDERS: Admitting Provider Internal Medicine; Emergency Provider Emergency Medicine; Visit Provider Psychiatry & Neurology Psychiatry
DX: L03.114 Cellulitis of left upper limb (principal); R45.851 Suicidal ideations; Z59.00 Homelessness unspecified; F20.9 Schizophrenia, unspecified; F17.210 Nicotine dependence, cigarettes, uncomplicated; Z91.14 Patient's other noncompliance with medication regimen
CPT/HCPCS: 73090; 73201; 80053; 80306; 80307; 82607; 82728; 82746; 83540; 83550; 84443; 85025; 96365; 96367; 96372; 96375; 99285; J1630; J1650; J2060; J2543; J3370; J3486; J7050; Q9967

== ENCOUNTER 2021-06-10 17:26 | Emergency (ER) | payer MEDICARE, SELFPAY ==
[2021-06-10 17:49] VITALS: BP 114/50; PULSE 103; RESP 16; TEMP 37.1; O2SAT 96; BMI 22.4
--- NOTE | 2021-06-10 17:52 | XRR_ITS ---
PROCEDURE INFORMATION: Exam: XR Left Shoulder Exam date and time: 06/10/2021 5:52 PM Age: 41 years old Clinical indication: Pain; Shoulder; Left TECHNIQUE: Imaging protocol: XR Left shoulder. Views: 2 or more views. COMPARISON: No relevant prior studies available. FINDINGS: Bones/joints: Normal. Soft tissues: Normal. XR/XR shoulder LT min 2V* [id number] IMPRESSION: No acute findings.
[2021-06-10] MEDS: HYDROcodone-acetaminophen 5-325 mg Tablet 1 TAB PO (17:56)
--- NOTE | 2021-06-10 17:58 | PC.NURSE ---
Denies SI and HI. Here for medication for sleep
--- NOTE | 2021-06-10 18:25 | W.ED.PSYCHS ---
HPI - Psych General: Chief Complaint: Psychiatric Symptoms Stated Complaint: MHE Source: patient Mode of arrival: ambulatory Limitations: no limitations History of Present Illness: 41-year-old male states that he has been having left shoulder pain over the last 3 to 5 days. States pain is sharp in nature is worse with movement. He denies any injuries. Help triage he did state he did like to go to [facility] I talked to him further denies any suicidal or homicidal ideations he states he is homeless and would like a place to stay but he does not feel like he needs any psychiatric admissions he has no hallucinations. Associated symptoms: Deny depression Review of Systems Const: Denies: fever(s), chills, body aches or change in appetite Eyes: Denies: blurry vision or eye discomfort ENMT: Denies: throat pain or dental pain Card: Denies: chest pain Resp: Denies: dyspnea GI: Denies: abdominal pain, nausea, vomiting or diarrhea : Denies: dysuria Musc: Reports: extremity pain; Denies: neck pain or back pain Skin/Breast: Denies: rash Neuro: Denies: headache(s) Psych: Denies: depression Mauro/Lymph: Denies: easy bruising All/Imm: Denies: urticaria PFSH ED PFSH: Medical History (Updated 06/10/21 @ 18:28 by Duyen Anguiano MD) Psychiatric care Schizophrenia Social History Smoking and tobacco status: current every day smoker Physical Exam Const: COMMON NORMALS: no acute distress, patient oriented x3 and healthy appearing HENMT: COMMON NORMALS: normocephalic and atraumatic HEAD & SCALP: normocephalic and atraumatic Eye: COMMON NORMALS: Equal, round and reactive pupils present and EOMs intact bilaterally PUPIL: Yes Equal, round and reactive pupils present Neck/C-Spine: COMMON NORMALS: full ROM and supple Chest: COMMONS NORMALS: normal inspection of the chest and normal palpation of entire chest wall Resp: COMMON NORMALS: normal respiratory effort, No retractions, No use of accessory muscles and clear to auscultation bilaterally AUSCULTATION: clear to auscultation bilaterally Cardio: COMMON NORMALS: regular rate, regular rhythm and No murmurs present (Cardio) RATE: regular rate RHYTHM: regular rhythm GI: COMMON NORMALS: Normal to inspection, nondistended, normoactive bowel sounds present, Soft to palpation, non-tender and no masses PALPATION: Yes Soft to palpation Extremity: COMMON NORMALS: normal to inspection and full ROM Neuro: COMMON NORMALS: patient oriented x3, moves all extremities and no focal motor deficits Psych: COMMON NORMALS: mental status grossly normal, Normal thought process present and cooperative THOUGHT PROCESS: Normal thought process present Skin: COMMON NORMALS: no rashes or lesions noted and no wounds GENERAL SKIN EXAM: no rashes or lesions noted Course Vital Signs: Vital signs: Vital Signs Temperature 98.8 F 06/10/21 17:49 Pulse Rate 99 06/10/21 18:31 Respiratory Rate 17 06/10/21 18:31 Blood Pressure 112/62 06/10/21 18:31 Pulse Oximetry 96 06/10/21 18:31 [facility] - Psych Medical Decision Making Patient presents with left shoulder pain x-ray here is negative he is well-appearing here he has no suicidal homicidal thoughts. He has no psych complaints here with me he is stable for discharge she is to follow-up with [facility] Lab Data Radiology Impressions Shoulder X-Ray 06/10/21 17:52 IMPRESSION: No acute findings. Discharge Plan Discharge Patient Disposition: Home Clinical Impression: Left shoulder pain Condition: Stable Prescriptions: New Naprosyn 500 mg tablet 500 mg PO BID PRN (Reason: pain) Qty: 20 0RF No Action buspirone 10 mg Tablet 15 mg PO BID 30 Days Qty: 60 1RF olanzapine 15 mg tablet 15 mg PO BEDTIME 30 Days 1RF Discharge Orders: Discharge ED (Routine); Ordered 06/10/21 Ordered By: Duyen Anguiano Discharge Diet: Advance as tolerated Discharge Activity: Resume usual activity Patient Instructions: Shoulder Pain (ED) Coding Level of Care Code ED Quality Assurance Intern for Macario Baker
[2021-06-10 18:31] VITALS: BP 112/62; PULSE 99; RESP 17; O2SAT 96
== END 2021-06-10 18:33 | disposition home or self-care (01) ==
PROVIDERS: Emergency Provider Emergency Medicine
DX: M25.512 Pain in left shoulder (principal); F17.210 Nicotine dependence, cigarettes, uncomplicated
CPT/HCPCS: 73030; 99283

== ENCOUNTER 2021-10-29 19:16 | Inpatient (IN) | payer MEDICARE, MEDICAID, SELFPAY ==
--- NOTE | 2021-10-29 19:18 | XRR_ITS ---
PROCEDURE INFORMATION: Exam: XR Chest Exam date and time: 10/29/2021 7:26 PM Age: 41 years old Clinical indication: Screening exam; Other screening; Additional info: Psych clearance TECHNIQUE: Imaging protocol: Radiologic exam of the chest. Views: 1 view. COMPARISON: CR XR shoulder LT min 2V* [id number] 06/10/2021 6:10 PM FINDINGS: Lungs: No consolidation. Pleural spaces: No pleural effusion. No pneumothorax. Heart/Mediastinum: No cardiomegaly. Bones/joints: Visualized osseous structures are intact. XR/XR chest 1V portable [id number] IMPRESSION: No acute findings.
--- NOTE | 2021-10-29 19:18 | ECG_ITS ---
[facility] Test Date: 2021-10-29 Pat Name: John Hernandez Department: Room: Gender: Male Identity Management Consultant: : 1980 Requested By: Abhijit Love Order Number: [id number] Jael MD: Carroll Sanchez M.D. Measurements Intervals Era Rate: 66 P: 79 GA: 157 QRS: 84 QRSD: 107 T: 75 QT: 388 QTc: 407 Interpretive Statements SINUS RHYTHM VOLTAGE CRITERIA FOR LVH [MEETS CRITERIA IN ONE OF: R(aVL), S(V1), R(V5), R(V5/V6)+S(V1)] No previous ECG available for comparison Electronically Signed On 10-29-2021 23:20:48 CDT by Carroll Sanchez M.D. [email or web address]
--- NOTE | 2021-10-29 19:21 | ED_ITS ---
HPI - General Adult General: Chief complaint: Psychiatric Symptoms Stated complaint: si Time Seen by Provider: 10/29/21 19:18 History of Present Illness: HPI: [41]yo patient w/ hx of depression and psychosis BIBP for depression with SI, auditory hallucination, and psychosis. Patient tells me that he is feeling depressed and wants to hurt himself. Patient tells me that he does not have any family here and everybody left him. Patient reports hearing voices daily. For On arrival, the patient is AAOx3 and cooperative with my evaluation. No focal complaints of chest pain, shortness of breath, palpitations, N/V, focal GI/ complaints. Currently denies HI. No complaints of hallucinations. Onset: unknown Duration: ongoing Location: home Severity: severe Associated symptoms: Deny chest pain, dyspnea, nausea, rash, palpitations or vomiting Review of Systems Const: Denies: fever(s) or chills Eyes: Denies: change in vision ENMT: Denies: mouth pain Card: Denies: chest pain or palpitations Resp: Denies: dyspnea or non-productive cough GI: Denies: abdominal pain, nausea, vomiting or diarrhea : Denies: dysuria Musc: Denies: extremity pain Skin/Breast: Denies: rash or new lesions Neuro: Denies: weakness in extremities Psych: Reports: depression, auditory hallucinations and suicidal ideation Mauro/Lymph: Denies: easy bruising PFSH ED PFSH: Medical History Generalized anxiety disorder Nicotine dependence, cigarettes, uncomplicated Psychiatric care Schizophrenia Social History (Updated 10/29/21 @ 19:28 by Abhijit Love MD) Smoking and tobacco status: current every day smoker Alcohol intake: never Substance/Drug Use: never Physical Exam Const: COMMON NORMALS: alert HENMT: COMMON NORMALS: atraumatic HEAD & SCALP: atraumatic MOUTH: moist mucous membranes not abnormal Eye: COMMON NORMALS: EOMs intact bilaterally and conjunctivae normal CONJUNCTIVA: Yes conjunctivae normal Neck/C-Spine: COMMON NORMALS: full ROM and supple Resp: COMMON NORMALS: normal respiratory effort and clear to auscultation bilaterally AUSCULTATION: clear to auscultation bilaterally Cardio: COMMON NORMALS: regular rate RATE: regular rate GI: COMMON NORMALS: Soft to palpation and non-tender PALPATION: Yes Soft to palpation Extremity: COMMON NORMALS: full ROM Neuro: SENSORIUM/ORIENTATION: Yes alert MOTOR EXAM: No Abnormal motor strength present and Other motor observations present (no focal motor deficits) Psych: COMMON NORMALS: speech normal SPEECH: Yes normal speech MOOD & AFFECT: Yes depressed mood MDM - General Adult Medical Decision Making [41]yo patient w/ hx of SHELLY and schiozphrenia presenting for depression with SI and auditory hallucination. HDS, exam within normal limit Thoughts are linear and organized, and the patient has no VH, or HI. Clinically the patient displays no overt toxidrome; they are well appearing, with low suspicion for toxic ingestion given history and exam. Symptoms unlikely 2/2 anemia, hypothyroidism, infection, or ICH. Workup: CBC, CMP, Lipase, salicylate/tylenol, serum ethanol, TSH, free T4, EKG, covid antigen, XR chest, UDS Lab findings: wnl, +marijuana in the urine [8:30pm] On reassessment, labs and workup wnl. Patient is hemodynamically stable with no acute medical complaints. Case discussed with psychiatric provider Dr. Price at [facility] psych inpatient with recommendation for admission Disposition: Psych Lab Data : 10/29/21 20:25 10/29/21 20:25 Radiology Impressions Chest X-Ray 10/29/21 19:18 IMPRESSION: No acute findings. Laboratory Results WBC 6.0 10^3/uL (4.0-10.0) 10/29/21 20: RBC 4.29 10^6/uL (4.1-5.3) 10/29/21 20: Hgb 13.6 g/dL (11.7-16.6) 10/29/21 20: Hct 39.8 % (42.0-52.0) L 10/29/21 20: MCV 92.8 fl (80-94) 10/29/21 20: MCH 31.7 pg (28.0-34.0) 10/29/21 20: MCHC 34.2 g/dL (30.0-36.0) 10/29/21 20: RDW 13.0 % (12.1-15.1) 10/29/21 20: Plt Count 387 10^3/cmm (130-400) 10/29/21 20:25 MPV 9.0 fL (7.4-10.4) 10/29/21 20:25 Neut % (Auto) 55.5 % 10/29/21 20:25 Lymph % (Auto) 35.2 % 10/29/21 20:25 [place] % (Auto) 7.2 % 10/29/21 20:25 Eos % (Auto) 1.0 % 10/29/21 20:25 Baso % (Auto) 0.8 % 10/29/21 20:25 Neut # (Auto) 3.31 10^3/uL (1.8-7.7) 10/29/21 20: Lymph # (Auto) 2.1 10^3/uL (0.8-4.8) 10/29/21 20:25 [place] # (Auto) 0.4 10^3/uL (0.2-0.9) 10/29/21 20:25 Eos # (Auto) 0.1 10^3/uL (0.0-0.8) 10/29/21 20:25 Baso # (Auto) 0.1 10^3/uL (0.0-0.1) 10/29/21 20: Nucleated RBC % (auto) 0 % 10/29/21 20: Nucleated RBCs # 0.0 /100WBC 10/29/21 20:25 Urine Opiates Screen Negative ng/mL (Negative) 10/29/21 20:43 Ur Barbiturates Screen Negative ng/mL (Negative) 10/29/21 20:43 Ur Phencyclidine Scrn Negative ng/mL (Negative) 10/29/21 20:43 Ur Amphetamines Screen Negative ng/mL (Negative) 10/29/21 20:43 U Benzodiazepines Scrn Negative ng/mL (Negative) 10/29/21 20:43 Urine Cocaine Screen Negative ng/mL (Negative) 10/29/21 20:43 U Marijuana (THC) Screen Positive ng/mL (Negative) H 10/29/21 20:43 Discharge Plan Discharge Patient Disposition: Admitted As Inpatient Clinical Impression: Depression with suicidal ideation, Auditory hallucination, Psychosis Condition: Stable Coding Level of Care Code ED Imaging Science Professor for Chg Fwd Exam Comprehensive
[2021-10-29 19:43] VITALS: BMI 23.0
[2021-10-29 20:45] LABS: Basophils # 0.1 10^3/uL (0.0-0.1); Basophils % 0.8 %; Eosinophils # 0.1 10^3/uL (0.0-0.8); Hematocrit 39.8 % (42.0-52.0); Hemoglobin 13.6 g/dL (11.7-16.6); Lymphocytes # 2.1 10^3/uL (0.8-4.8); Lymphocytes % 35.2 %; Mean Corpuscular HGB Conc 34.2 g/dL (30.0-36.0); Mean Corpuscular Hemoglobin 31.7 pg (28.0-34.0); Mean Corpuscular Volume 92.8 fl (80-94); Monocytes # 0.4 10^3/uL (0.2-0.9); Monocytes % 7.2 %; Neutrophils # 3.31 10^3/uL (1.8-7.7); Neutrophils % 55.5 %; Nucleated Red Blood Cells % 0 %; Platelet Count 387 10^3/cmm (130-400); Red Blood Count 4.29 10^6/uL (4.1-5.3)
[2021-10-29 20:56] LABS: Amphetamines Screen Urine Negative (Negative); Barbiturates Screen Urine Negative (Negative); Benzodiazepines Screen Urine Negative (Negative); Cocaine Screen Urine Negative (Negative); Opiate Screen Urine Negative (Negative); PCP Screen Urine Negative (Negative); THC Screen Urine Positive (Negative)
[2021-10-29 21:19] LABS: Acetaminophen < 5.0 ug/mL (10-30); Alanine Aminotransferase 8 U/L (0-41); Albumin Level 4.5 g/dL (3.5-5.2); Alcohol Level 136 mg/dL (0-10); Alkaline Phosphatase 44 IU/L (40-130); Anion Gap 16.1 (5-19); Aspartate Amino Transferase 15 U/L (0-40); Blood Urea Nitrogen 6 mg/dL (6-20); Calcium 8.9 mg/dL (8.5-10.5); Carbon Dioxide 27 mmol/L (22-29); Chloride 105 mmol/L (98-107); Globulin 2.5 g/dL (1.3-4.6); Glomerular Filtration Rate 81.6 mL/min (90-130); Glucose 94 mg/dL (65-115); Lipase 48 U/L (13-60); Osmolality Calculated 295 mOsm/kg (285-295); Potassium 4.1 mmol/L (3.5-5.1); Salicylate < 0.3 mg/dL (3-10); Sodium 144 mmol/L (136-145); Thyroid Stimulating Hormone 0.58 uIU/mL (0.27-4.20); Total Bilirubin 0.2 mg/dL (0.15-1.2)
[2021-10-29 21:37] VITALS: BP 100/61; PULSE 75; RESP 18; O2SAT 97
[2021-10-29] MEDS: LORazepam 2 mg Tablet PO (21:37)
[2021-10-29 21:50] LABS: Free T4 Free Thyroxine 1.57 ng/dL (0.82-1.77)
[2021-10-29 21:54] VITALS: BP 125/80; PULSE 60; RESP 17; TEMP 36.8; O2SAT 100
[2021-10-29 22:00] VITALS: BP 125/80; PULSE 60; RESP 17; TEMP 36.8; O2SAT 100
[2021-10-30 06:00] VITALS: BP 113/74; PULSE 76; RESP 16; TEMP 36.8; O2SAT 98
[2021-10-30] MEDS: multivitamin therapeutic Tablet 1 TAB PO (10:45)
[2021-10-30] MEDS: thiamine 100 mg Tablet PO (10:46)
[2021-10-30] MEDS: BuSPIRONE 10 mg Tablet 15 MG PO ×2 (10:46→17:07)
[2021-10-30] MEDS: folic acid 1 mg Tablet PO (10:46)
--- NOTE | 2021-10-30 11:28 | PC.NURSE ---
RESTING IN BED AROUSES TO VOICE. PT REPORTS HE IS NO LONGER HAVING SUICIDAL THOUGHTS. PT REPORTS HE TAKES BUSPAR AND ZYPREXA DAILY. WAS NOTIFIED AND WILL DECIDE ON MEDICATIONS ONCE PT IS SEEN. PT DENIES SI/HI AND AVH AT THIS TIME. PT CONTINUES TO REST AND SLEEP IN BED ONCE ASSESSMENT COMPLETED. ALL QUESTIONS ANSWERED AND SUPPORT VOICED.
--- NOTE | 2021-10-30 11:41 | P.NPUHP_ITS ---
Providers/Chief Complaint Admitting Physician: Jason Price MD Chief Complaint: si HPI NPU History of Present Illness John Hernandez is a 41 year old male He presents today reporting he had come to visit his friends but had to leave with nowhere to go, after which he was picked up by the police who brought him to the hospital due to his mental health crisis. He has been psychiatrically hospitalized a number of times, has received outpatient services in the past and is currently taking Zyprexa and Buspar. He denies suicidal ideation which comes and goes no matter where he is but endorses it is just a thought and he doesn?t want to act on it. He reports he has a case management director but is unsure if they know he is in the hospital. He reports alcohol drinking socially, endorses marijuana, and denies any other illicit drug use. He reports his sleep has been good and endorses feeling depression which is one of his biggest problems with low mood, low motivation, passive wish, suicidal ideation, and decreased appetite. He reports he got in trouble a lot when he was in school for truancy and stealing issues. He reports he was on Prolixin which gave him shakes and tremors. He reports he has a diagnosis of schizophrenia. Psychiatric History: As above. Medications : zyprexa 10mg at night, buspar 15mg tid Substance Abuse History:Reports hx of alcohol use. Family History: He did not report any mental health or addiction issues in his family during the interview. Developmental History: He did not report any issues with developmental delays not needing to receive speech therapy, learning support, emotional support or special education classes. Psychosocial History: He was born in [place], [place] and raised by his biological mother and stepfather who adopted him. He has a brother who is a product of the same union and a sister who is a product of his mother and stepfather. He dropped out of school and got his GED. 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 Legal History: He was in juvenile correction secondary to stealing, the first time of which was when he was 8 or 9 and the last time of which was in 2017 for 2 years. Medical History: He denies any known allergies to medications or medical issues. This is a 41 year old white male with a history of schizophrenia who presents currently reporting worsening depression in addition to chronic anxiety, open to medication changes at this time. 1. Restart his current medications with a likely adjustment for the patient?s Buspar. 2. Encourage individual, group and milieu therapy 3. Continue q-15 minute check for safety 4. Recommend sober living treatment at the highest level of care to which the pa tient is willing to commit. Meds NPU Home Medications Medication Instructions Recorded Confirmed Last Taken Type buspirone 15 mg tablet 15 mg PO TID #90 tab 10/16/21 10/29/21 10/29/21 Rx olanzapine 15 mg tablet 15 mg PO BEDTIME 30 Days #30 tab 10/16/21 10/29/21 10/28/21 Rx Allergies Allergy/AdvReac Type Severity Reaction Status Date / Time No Known Allergies Allergy Verified 05/26/21 23:54 PFSH NPU PFSH: Medical History Generalized anxiety disorder Nicotine dependence, cigarettes, uncomplicated Psychiatric care Schizophrenia Social History (Updated 10/29/21 @ 19:28 by Abhijit Love MD) Smoking and tobacco status: current every day smoker Alcohol intake: never Mental Status Exam MSE Comments: This is a thin white male looking older than his stated age with a wayne complexion in hospital scrubs with poor grooming and poor eye contact. No abnormal movements. Cooperative with exam in no acute distress. Speech was slightly decreased rate and volume. Mood described as depressed, affect is blunted. Thought process, linear and superficial. Though content: patient did not demonstrate homicidal ideation but showed passive suicidal ideation with no active plan at this time, no delusions reported or noted, and denies auditory or visual hallucinations. Attention and concentration are intact and memory appeared reliable but none were formally tested. He is alert and oriented three times. Insight is fair, judgment is limited and impulse control is fair. He was not oriented to date, day of week or month but not year. Vitals/I&O/Wt Last Vital Signs Temp 98.3 F 10/30/21 06:00 Pulse 76 10/30/21 06:00 Resp 16 10/30/21 06:00 BP 113/74 10/30/21 06:00 Pulse Ox 98 10/30/21 06:00 Weight last 48 hrs Weight 77.111 kg Data NPU : 10/29/21 20:25 10/29/21 20:25 A&P Assessment and plan (1) Schizophrenia: Status: Acute (2) Depression with suicidal ideation: Status: Acute (3) Psychosis: Status: Acute (4) Auditory hallucination: Status: Acute Plan John is a 41 year old white male with Schizophrenia endorsing suicidal ideation and worsening mood with reports of diminished energy and decline in motivation. 1. admit, TO-15 checks on unit 2. Will adjust medications as needed 3. engage patient in milieu, group and individual therapy 4. attempt to gather collateral information. Involuntary Hold Information 96 Hour Hold: 96 Hour Involuntary Admission: No 96 Hour Hold Ending Date: 06/02/21 96 Hour Hold Ending Time: 02:24 Attestations NPU Medical Necessity Statement*: Inpatient hospitalization is medically necessary and the clinically appropriate intervention at this time. We will monitor medications and make changes as indicated. Patient will be in the hospital for over two midnights. Likely length of stay is three to five days. Coding Level of Care Code Established Pt Acute Ski Molder for Leonardog Fwd Patient Type Established History Problem Focused Exam Problem Focused Medical Decision Making Straight Forward Diagnoses Depression with suicidal ideation F32.A; R45.851 Psychosis F29 Auditory hallucination R44.0 Schizophrenia F20.9
[2021-10-30] MEDS: nicotine 2 mg Gum BUCCAL (12:26)
[2021-10-30 14:00] VITALS: BP 121/85; PULSE 65; RESP 16; TEMP 36.8; O2SAT 98
[2021-10-30 20:10] VITALS: BP 87/52; PULSE 50; RESP 14; TEMP 36.8; O2SAT 98
[2021-10-30] MEDS: OLANZapine 10 mg TABLET 15 MG PO (20:10)
[2021-10-31 06:00] VITALS: BP 104/69; PULSE 51; RESP 15; TEMP 36.4; O2SAT 98
[2021-10-31] MEDS: folic acid 1 mg Tablet PO (09:03)
[2021-10-31] MEDS: thiamine 100 mg Tablet PO (09:03)
[2021-10-31] MEDS: sertraline 50 mg Tablet 25 MG PO (09:04)
[2021-10-31] MEDS: multivitamin therapeutic Tablet 1 TAB PO (09:04)
[2021-10-31] MEDS: BuSPIRONE 10 mg Tablet 15 MG PO ×2 (09:04→20:25)
[2021-10-31] MEDS: nicotine 2 mg Gum BUCCAL ×2 (09:05→16:45)
--- NOTE | 2021-10-31 13:27 | P.NPUPN_ITS ---
Subjective NPU Subjective: 41 year old with schizophrenia and anxiety admitted with suicidal ideation and worsening depression. Patient reports mood has been depressed still, he reported continued hallucinations but reports that it has been less distracting. He continued to isolate on the milieu, active problems with a nergia, amotivation, decreased appetite. He endorsed less frequent suicidal thoughts. Mental Status Exam MSE Comments: This is a thin white male looking older than his stated age with a wayne complexion in hospital scrubs with poor? grooming and poor eye contact. No abnormal movements. Cooperative with exam in no acute distress. Speech was slightly decreased rate and volume. Mood described as depressed, affect is blunted. Thought process, linear and superficial. Though content: patient did not demonstrate homicidal ideation but showed passive suicidal ideation with no active plan at this time, no delusions reported or noted, and denies auditory or visual hallucinations. Attention and concentration are intact and memory appeared reliable but none were formally tested. He is alert and oriented three times. Insight is fair, judgment is limited and impulse control is fair.? Vitals/I&O/Wt Last Vital Signs Temp 98 F 10/31/21 14:00 Pulse 63 10/31/21 14:00 Resp 16 10/31/21 14:00 BP 149/97 10/31/21 14:00 Pulse Ox 97 10/31/21 14:00 Weight last 48 hrs Weight 77.111 kg Data NPU : 10/29/21 20:25 10/29/21 20:25 A&P Assessment and plan (1) Depression with suicidal ideation: Status: Acute (2) Auditory hallucination: Status: Acute (3) Psychosis: Status: Acute (4) Schizophrenia: Status: Acute Plan John is a 41 year old white male with Schizophrenia endorsing suicidal ideation and worsening mood with reports of diminished energy and decline in motivation.? 1. admit, TO-15 checks on unit 2. Increase Olanzapine 15mg at night, zoloft 50mg in am, decrease buspar to 7.5m g bid 3. engage patient in milieu, group and individual therapy 4. attempt to gather collateral information.? Involuntary Hold Information 96 Hour Hold: 96 Hour Involuntary Admission: No 96 Hour Hold Ending Date: 06/02/21 96 Hour Hold Ending Time: 02:24 Attestations NPU Medical Necessity Statement*: Inpatient hospitalization is medically necessary and the clinically appropriate intervention at this time. We will monitor medications and make changes as indicated. Likely length of stay is three to five days. Coding Level of Care Code Established Pt Acute Charge Accounts Audit Clerk for Chg Fwd Patient Type Established History Problem Focused Exam Problem Focused Medical Decision Making Straight Forward Diagnoses Depression with suicidal ideation F32.A; R45.851 Auditory hallucination R44.0 Psychosis F29 Schizophrenia F20.9
[2021-10-31 14:00] VITALS: BP 149/97; PULSE 63; RESP 16; TEMP 36.6; O2SAT 97
[2021-10-31] MEDS: hyDROXYzine 25 mg Capsule 50 MG PO (20:25)
[2021-10-31 20:26] VITALS: BP 128/85; PULSE 80; RESP 20; TEMP 36.4; O2SAT 95
[2021-10-31] MEDS: OLANZapine 10 mg TABLET 15 MG PO (20:26)
[2021-11-01 06:00] VITALS: BP 112/67; PULSE 62; RESP 17; TEMP 36.4; O2SAT 98
[2021-11-01] MEDS: BuSPIRONE 10 mg Tablet 15 MG PO (08:19)
[2021-11-01] MEDS: sertraline 50 mg Tablet PO (08:20)
[2021-11-01] MEDS: thiamine 100 mg Tablet PO (08:20)
[2021-11-01] MEDS: multivitamin therapeutic Tablet 1 TAB PO (08:20)
[2021-11-01] MEDS: folic acid 1 mg Tablet PO (08:20)
[2021-11-01] MEDS: nicotine 2 mg Gum BUCCAL ×2 (08:57→15:42)
--- NOTE | 2021-11-01 11:41 | W.PM.NPUPNS ---
Subjective NPU Subjective: 41 year old with schizophrenia and anxiety admitted with suicidal ideation and worsening depression. Patient reports mood has continued to be depressed but he reports less flashbacks and nightmares. Patient reports no feelings of hopelessness today. He reports appetite loss and endorsed continued alcohol use. He reports being homeless. Mental Status Exam MSE Comments: This is a thin white male looking older than his stated age with a wayne complexion in hospital scrubs with poor? grooming and poor eye contact. No abnormal movements. Cooperative with exam in no acute distress. Speech was slightly decreased rate and volume. Mood described as depressed, affect is blunted. Thought process, linear and superficial. Though content: patient did not demonstrate homicidal ideation but showed passive suicidal ideation with no active plan at this time, no delusions reported or noted, and denies auditory or visual hallucinations. Attention and concentration are intact and memory appeared reliable but none were formally tested. He is alert and oriented three times. Insight is fair, judgment is limited and impulse control is fair.? Vitals/I&O/Wt Last Vital Signs Temp 98 F 11/01/21 14:00 Pulse 62 11/01/21 14:00 Resp 17 11/01/21 14:00 BP 102/63 11/01/21 14:00 Pulse Ox 97 11/01/21 14:00 Data NPU : 10/29/21 20:25 10/29/21 20:25 A&P Assessment and plan (1) Depression with suicidal ideation: Status: Acute (2) Auditory hallucination: Status: Acute (3) Generalized anxiety disorder: Status: Acute Plan Ojhn is a 41 year old white male with Schizophrenia endorsing suicidal ideation and worsening mood with reports of diminished energy and decline in motivation.? 1. admit, TO-15 checks on unit 2. Continue Olanzapine 15mg at night, zoloft 50mg in am, decrease buspar to 7.5mg bid 3. engage patient in milieu, group and individual therapy 4. attempt to gather collateral information. Involuntary Hold Information 96 Hour Hold: 96 Hour Involuntary Admission: No 96 Hour Hold Ending Date: 06/02/21 96 Hour Hold Ending Time: 02:24 Attestations NPU Medical Necessity Statement*: Inpatient hospitalization is medically necessary and the clinically appropriate intervention at this time. We will monitor medications and make changes as indicated. Likely length of stay is three to five days. Coding Level of Care Code Established Pt Acute Competitive Intelligence Analyst for Chg Fwd Patient Type Established History Problem Focused Exam Problem Focused Medical Decision Making Straight Forward Diagnoses Depression with suicidal ideation F32.A; R45.851 Auditory hallucination R44.0 Generalized anxiety disorder F41.1
[2021-11-01 14:00] VITALS: BP 102/63; PULSE 62; RESP 17; TEMP 36.6; O2SAT 97
[2021-11-01] MEDS: OLANZapine 10 mg TABLET 15 MG PO (20:01)
[2021-11-01] MEDS: BuSPIRONE 10 mg Tablet 7.5 MG PO (20:03)
[2021-11-01] MEDS: trazodone 50 mg Tablet PO (21:31)
[2021-11-01 22:00] VITALS: BP 163/89; PULSE 55; RESP 17; O2SAT 94
[2021-11-02 06:00] VITALS: BP 113/71; PULSE 64; RESP 16; TEMP 36.6; O2SAT 97; BMI 23.3
[2021-11-02] MEDS: nicotine 2 mg Gum BUCCAL ×3 (07:12→15:10)
[2021-11-02] MEDS: folic acid 1 mg Tablet PO (08:42)
[2021-11-02] MEDS: BuSPIRONE 10 mg Tablet 7.5 MG PO (08:42)
[2021-11-02] MEDS: sertraline 50 mg Tablet PO (08:42)
[2021-11-02] MEDS: multivitamin therapeutic Tablet 1 TAB PO (08:42)
[2021-11-02] MEDS: thiamine 100 mg Tablet PO (08:42)
[2021-11-02] MEDS: BuSPIRONE 10 mg Tablet 15 MG PO (13:32)
[2021-11-02 14:00] VITALS: BP 120/78; PULSE 70; RESP 17; TEMP 36.6; O2SAT 96
--- NOTE | 2021-11-02 15:09 | P.NPUPN_ITS ---
Subjective NPU Subjective: 41 year old with schizophrenia and anxiety admitted with suicidal ideation and worsening depression with complains of auditory hallucinations and paranoia. Patient expressed desire to go home soon stating that he has good support and is feeling better with the increase in zyprexa. He reports that he was on higher dose of buspar that had worked better to manage his anxiety. Patient reports that depression has been improving with zoloft. He reports a decrease in the suicidal thoughts. Patient reports improved appetite and energy. he continues to minimize the effects of drug and alcohol on his psychosis, depression and anxiety. Mental Status Exam MSE Comments: This is a thin white male looking older than his stated age with a wayne complexion in hospital scrubs with fair grooming and improved eye contact. No abnormal movements. Cooperative with exam in no acute distress. Speech was slightly decreased rate and volume. Mood described as okay , affect remained blunted. Thought process was linear and superficial. Though content: patient did not demonstrate homicidal ideation and no active suicidal ideation or plan. no delusions reported or noted, and denies auditory or visual hallucinations. Attention and concentration are intact and memory appeared reliable but none were formally tested. He is alert and oriented three times. Insight is fair, judgment is limited and impulse control is fair.? Vitals/I&O/Wt Last Vital Signs Temp 98 F 11/02/21 14:00 Pulse 70 11/02/21 14:00 Resp 17 11/02/21 14:00 BP 120/78 11/02/21 14:00 Pulse Ox 96 11/02/21 14:00 Weight last 48 hrs Weight 78.018 kg Data NPU : 10/29/21 20:25 10/29/21 20:25 A&P Assessment and plan (1) Depression with suicidal ideation: Status: Acute (2) Auditory hallucination: Status: Acute (3) Psychosis: Status: Acute (4) Generalized anxiety disorder: Status: Acute (5) Schizophrenia: Status: Acute (6) Nicotine dependence, cigarettes, uncomplicated: Status: Acute (7) Cellulitis: Status: Acute Plan John is a 41 year old white male with Schizophrenia endorsing suicidal ideation and worsening mood with reports of diminished energy and decline in motivation.? 1. admit, TO-15 checks on unit 2. Increase? Olanzapine 20mg at night, zoloft 50mg in am, increase buspar to 15mg bid with plan to return buspar back to 45mg/day prior to discharge. 3. engage patient in milieu, group and individual therapy 4. consider discharge soon. Involuntary Hold Information 96 Hour Hold: 96 Hour Involuntary Admission: No 96 Hour Hold Ending Date: 06/02/21 96 Hour Hold Ending Time: 02:24 Attestations NPU Medical Necessity Statement*: Inpatient hospitalization is medically necessary and the clinically appropriate intervention at this time. We will monitor medications and make changes as indicated. Likely length of stay is 2-4 days. Coding Level of Care Code Established Pt Acute Surgical Specialist for Chg Fwd Patient Type Established History Problem Focused Exam Problem Focused Medical Decision Making Straight Forward Diagnoses Depression with suicidal ideation F32.A; R45.851 Auditory hallucination R44.0 Psychosis F29 Generalized anxiety disorder F41.1 Schizophrenia F20.9 Nicotine dependence, cigarettes, uncomplicated F17.210 Cellulitis L03.90
[2021-11-02] MEDS: trazodone 50 mg Tablet PO (19:57)
[2021-11-02] MEDS: OLANZapine 10 mg TABLET 20 MG PO (19:57)
[2021-11-02 20:39] VITALS: BP 126/77; PULSE 68; RESP 17; TEMP 36.7; O2SAT 98
[2021-11-03 06:00] VITALS: BP 101/61; PULSE 56; RESP 17; TEMP 36.6; O2SAT 99
[2021-11-03] MEDS: nicotine 2 mg Gum BUCCAL (06:16)
[2021-11-03] MEDS: thiamine 100 mg Tablet PO (08:08)
[2021-11-03] MEDS: folic acid 1 mg Tablet PO (08:08)
[2021-11-03] MEDS: multivitamin therapeutic Tablet 1 TAB PO (08:08)
[2021-11-03] MEDS: sertraline 50 mg Tablet PO (08:08)
[2021-11-03 14:00] VITALS: BP 120/71; PULSE 70; RESP 17; TEMP 36.6; O2SAT 97
--- NOTE | 2021-11-03 17:00 | P.NPUPN_ITS ---
Subjective NPU Subjective: Patient presents today reporting that things are going fairly well. He reports he came here after having an odd situation when he was visiting town and had to leave a place for his own safety and wellbeing and was stopped and interviewed by the police who noted his mental health concerns and suggested that he come to the NPU. He reports that the interventions that Dr. Price has initiated have been helpful but he reports feeling that he is just about ready for discharge. We discussed reviewing the chart and getting some collateral information and considering discharge in the next 48 hours. Mental Status Exam MSE Comments: This is a thin white male looking older than his stated age with a wayne complexion in hospital scrubs with fair grooming and adequate eye contact. No abnormal movements. Cooperative with exam in no acute distress. Speech was slightly decreased rate and volume with limited prosody. Mood described as okay , affect remained?blunted. Thought process was linear and s uperficial. Though content: patient denied suicidal or homicidal ideation, there were delusions reported or noted, and denies auditory or visual hallucinations. Attention and concentration are intact and memory appeared reliable but none were formally tested. He is alert and oriented three times. Insight is fair, judgment is limited and impulse control is fair.? Vitals/I&O/Wt Last Vital Signs Temp 98 F 11/03/21 14:00 Pulse 70 11/03/21 14:00 Resp 17 11/03/21 14:00 BP 120/71 11/03/21 14:00 Pulse Ox 97 11/03/21 14:00 Weight last 48 hrs Weight 78.018 kg Data NPU : 10/29/21 20:25 10/29/21 20:25 A&P Assessment and plan (1) Depression with suicidal ideation: Status: Acute (2) Auditory hallucination: Status: Acute (3) Psychosis: Status: Acute (4) Generalized anxiety disorder: Status: Acute (5) Nicotine dependence, cigarettes, uncomplicated: Status: Acute (6) Schizophrenia: Status: Acute Plan John is a 41 year old white male with Schizophrenia endorsing suicidal ideation and worsening mood with reports of diminished energy and decline in motivation.? 1. Continue current medication except increased Olanzapine 20mg at night, zoloft 50mg in am, increased buspar to 15mg bid with plan to return buspar back to 45mg/day prior to discharge. 2. Continue every 15 minute checks for safety. 3. Encourage individual, group and milieu therapies. 4. Encourage sober living treatment after discharge at the highest level of care to which he is willing to commit. 5. Consider discharge in the morning. Involuntary Hold Information 96 Hour Hold: 96 Hour Involuntary Admission: No 96 Hour Hold Ending Date: 06/02/21 96 Hour Hold Ending Time: 02:24 Attestations NPU Medical Necessity Statement*: Inpatient hospitalization is medically necessary and the clinically appropriate intervention at this time. We will monitor medications and make changes as indicated. Likely length of stay is 1-3 days. Coding Level of Care Code Acute Diagnostic Radiologist for Chg Fwd Diagnoses Depression with suicidal ideation F32.A; R45.851 Auditory hallucination R44.0 Psychosis F29 Generalized anxiety disorder F41.1 Nicotine dependence, cigarettes, uncomplicated F17.210 Schizophrenia F20.9
[2021-11-03] MEDS: OLANZapine 10 mg TABLET 20 MG PO (19:34)
[2021-11-03] MEDS: hyDROXYzine 25 mg Capsule 50 MG PO (19:34)
[2021-11-03] MEDS: trazodone 50 mg Tablet PO (19:35)
[2021-11-03 20:08] VITALS: BP 123/75; PULSE 65; RESP 18; TEMP 36.7; O2SAT 98
[2021-11-04 06:00] VITALS: BP 132/88; PULSE 62; RESP 18; TEMP 36.7; O2SAT 97
[2021-11-04] MEDS: thiamine 100 mg Tablet PO (08:22)
[2021-11-04] MEDS: sertraline 50 mg Tablet PO (08:22)
[2021-11-04] MEDS: folic acid 1 mg Tablet PO (08:22)
[2021-11-04] MEDS: nicotine 2 mg Gum BUCCAL (08:22)
[2021-11-04] MEDS: multivitamin therapeutic Tablet 1 TAB PO (08:23)
--- NOTE | 2021-11-04 12:45 | P.NPUDS_ITS ---
Diagnoses at Discharge Discharge Diagnosis (1) Depression with suicidal ideation: Status: Resolved (2) Auditory hallucination: Status: Acute (3) Psychosis: Status: Acute (4) Generalized anxiety disorder: Status: Acute (5) Nicotine dependence, cigarettes, uncomplicated: Status: Acute (6) Schizophrenia: Status: Acute Reason for Visit Reason for Visit: si Brief History: History of Present Illness John Hernandez is a 41 year old male He presents today reporting he had come to visit his friends but had to leave with nowhere to go, after which he was picked up by the police who brought him to the hospital due to his mental health crisis. He has been psychiatrically hospitalized a number of times, has received outpatient services in the past and is currently taking Zyprexa and Buspar. He denies suicidal ideation which comes and goes no matter where he is but endorses it is just a thought and he doesn?t want to act on it. He reports he has a rehabilitation caseworker but is unsure if they know he is in the hospital. He reports alcohol drinking socially, endorses marijuana, and denies any other illicit drug use. He reports his sleep has been good and endorses feeling depression which is one of his biggest problems with low mood, low motivation, passive wish, suicidal ideation, and decreased appetite. He reports he got in trouble a lot when he was in school for truancy and stealing issues. He reports he was on Prolixin which gave him shakes and tremors. He reports he has a diagnosis of schizophrenia. Psychiatric History: As above. Medications : zyprexa 10mg at night, buspar 15mg tid Substance Abuse History:Reports hx of alcohol use. Family History: He did not report any mental health or addiction issues in his family during the interview. Developmental History: He did not report any issues with developmental delays not needing to receive speech therapy, learning support, emotional support or special education classes. Psychosocial History: He was born in [place], [place] and raised by his biological mother and stepfather who adopted him. He has a brother who is a product of the same union and a sister who is a product of his mother and stepfather. He dropped out of school and got his GED. 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 Legal History: He was in juvenile correction secondary to stealing, the first time of which was when he was 8 or 9 and the last time of which was in 2017 for 2 years. Medical History: He denies any known allergies to medications or medical issues. Hospital Course Hospital Course Slowly acclimated to the individual, milieu therapies provided. Zoloft was started and titrated to 100 mg p.o. daily and his Zyprexa was increased to 20 mg at night thiamine and trazodone were also added to his regimen with modest improvement. He was able to contract for safety outside the hospital prior to discharge. During the hospitalization, patient had routine laboratory studies which were within normal limits except for few outliers. Additionally there was a general medical evaluation which was also within normal limits and revealed no new acute processes. Discharge Summary: At the time of discharge, lethality was denied and psychosis was resolving. Mood and anxiety were well managed. Patient endorsed a plan to avoid all drugs of abuse and follow-up with the aftercare recommendations of the treatment team. Patient was evaluated and deemed to be absent credible lethality, and had achieved the maximum benefit from an inpatient hospitalization, so was discharged. Involuntary Hold Information 96 Hour Hold: 96 Hour Involuntary Admission: No 96 Hour Hold Ending Date: 06/02/21 96 Hour Hold Ending Time: 02:24 Mental Status Exam MSE Comments: This is a thin white male looking older than his stated age with a wayne complexion in hospital scrubs with fair grooming and adequate eye contact. No abnormal movements. Cooperative with exam in no acute distress. Speech was slightly decreased rate and volume with limited prosody.? Mood described as better, affect remained?blunted. Thought process was linear and superficial. Though content: patient denied suicidal or homicidal ideation, there were delusions reported or noted, and denies auditory or visual hallucinations. Attention and concentration are intact and memory appeared reliable but none were formally tested. He is alert and oriented three times. Insight is fair, judgment is limited but improving and impulse control is fair.? Discharge Data Studies Completed and Pending: Completed Studies During Hospitalization Category Date Time Status XR chest 1V tiffanie ble [id number] Urgent Exams 10/29/21 19:18 Completed Radiology Impressions Chest X-Ray 10/29/21 19:18 IMPRESSION: No acute findings. Laboratory Results WBC 6.0 10^3/uL (4.0- 10.0) 10/29/21 20:25 RBC 4.29 10^6/uL (4.1 -5.3) 10/29/21 20: Hgb 13.6 g/dL (11.7-1 6.6) 10/29/21: Hct 39.8 % (42.0-52.0 ) L 10/29/21: MCV 92.8 fl (80-94) 10/29/21: MCH 31.7 pg (28.0-34. 0) 10/29/21: MCHC 34.2 g/dL (30.0-3 6.0) 10/29/21: RDW 13.0 % (12.1-15.1 ) 10/29/21: Plt Count 387 10^3/cmm (130 -400) 10/29/21 MPV 9.0 fL (7.4-10.4) 10/29/21 Neut % (Auto) 55.5 % 10/29/21: Lymph % (Auto) 35.2 % 10/29/21: Fannin % (Auto) 7.2 % 10/29/21: Eos % (Auto) 1.0 % 10/29/21: Baso % (Auto) 0.8 % 10/29/21: Neut # (Auto) 3.31 10^3/uL (1.8 -7.7) 10/29/21: Lymph # (Auto) 2.1 10^3/uL (0.8- 4.8) 10/29/21: Fannin # (Auto) 0.4 10^3/uL (0.2- 0.9) 10/29/21: Eos # (Auto) 0.1 10^3/uL (0.0- 0.8) 10/29/21: Baso # (Auto) 0.1 10^3/uL (0.0- 0.1) 10/29/21 Nucleated RBC % (a uto) 0 % 10/29/21 Nucleated RBCs # 0.0 /100WBC 10/29/21 20: Sodium 144 mmol/L (136-1 45) 10/29/21: Potassium 4.1 mmol/L (3.5-5 .1) 10/29/21 20:25 Chloride 105 mmol/L (98-10 7) 10/29/21 20: Carbon Dioxide 27 mmol/L (22-29) 10/29/21 20: Anion Gap 16.1 (5-19) 10/29/21 20:25 BUN 6 mg/dL (6-20) 10/29/21 20:25 Creatinine 1.0 mg/dL (0.7-1. 2) 10/29/21 20: GFR Calculation 81.6 mL/min (90-1 30) L 10/29/21 20: Glucose 94 mg/dL (65-115) 10/29/21 20:25 Calculated Osmolal ity 295 mOsm/kg (285- 295) 10/29/21 20: Calcium 8.9 mg/dL (8.5-10 .5) 10/29/21: Total Bilirubin 0.2 mg/dL (0.15-1 .2) 10/29/21: AST 15 U/L (0-40) 10/29/21: ALT 8 U/L (0-41) 10/29/21 20: Alkaline Phosphata se 44 IU/L (40-130) 10/29/21 20: Total Protein 7.0 g/dL (6.6-8.7 ) 10/29/21: Albumin 4.5 g/dL (3.5-5.2 ) 10/29/21: Globulin 2.5 g/dL (1.3-4.6 ) 10/29/21: Lipase 48 U/L (13-60) 10/29/21 20: TSH 0.58 uIU/mL (0.27 -4.20) 10/29/21 20: Free T4 1.57 ng/dL (0.82- 1.77) 10/29/21 20: Salicylates < 0.3 mg/dL (3-10 ) L 10/29/21 20: Urine Opiates Scre en Negative ng/mL (N egative) 10/29/21 20:43 Acetaminophen < 5.0 ug/mL (10-3 0) L 10/29/21 20:25 Ur Barbiturates Sc reen Negative ng/mL (N egative) 10/29/21 20:43 Ur Phencyclidine S crn Negative ng/mL (N egative) 10/29/21 20:43 Ur Amphetamines Sc reen Negative ng/mL (N egative) 10/29/21 20:43 U Benzodiazepines Scrn Negative ng/mL (N egative) 10/29/21 20:43 Urine Cocaine Scre en Negative ng/mL (N egative) 10/29/21 20:43 U Marijuana (THC) Screen Positive ng/mL (N egative) H 10/29/21 20:43 Ethyl Alcohol 136 mg/dL (0-10) H 10/29/21 20:25 Vitals: Last Vital Signs Temp 98.0 F 11/04/21 06:00 Pulse 62 11/04/21 06:00 Resp 18 11/04/21 06:00 BP 132/88 11/04/21 06:00 Pulse Ox 97 11/04/21 06:00 Discharge Plan Discharge Patient Disposition: Home Condition: Stable Prescriptions: New olanzapine 10 mg Tablet 20 mg PO BEDTIME 30 Days Qty: 60 1RF sertraline 100 mg tablet 100 mg PO DAILY 30 Days Qty: 30 1RF trazodone 50 mg Tablet 50 mg PO BEDTIME PRN (Reason: Sleep) 30 Days Qty: 30 1RF Vitamin B-1 (mononitrate) 100 mg Tablet 100 mg PO DAILY 30 Days Qty: 30 1RF Continued buspirone 15 mg tablet 15 mg PO TID 30 Days Qty: 90 1RF Discontinued olanzapine 15 mg tablet 15 mg PO BEDTIME 30 Days Qty: 30 2RF Discharge Orders: Discharge Order (Routine); Ordered 11/04/21 Ordered By: Vaibhav Harris Referrals: Pooja Joyner, [email or web address] [Staff Physician] - 11/07/21 9:45 am Mayo Berman [Automotive Service Technician] - Discharge Diet: Regular Discharge Activity: Resume usual activity Patient Instructions: Generalized Anxiety Disorder, Buspirone (By mouth), Sertraline (By mouth), Olanzapine (By mouth), Opioid Safety Discharge Attestations NPU Time Spent in Discharge Care*: less than 30 min Specific Discharge Activities: Specific discharge activities: educating patient, discussing with case management rn/social workers/dc planners, documenting/other paperwork and evaluating patient/reviewing data Coding Level of Care Code Acute Chg FW DC note Diagnoses Depression with suicidal ideation F32.A; R45.851 Auditory hallucination R44.0 Psychosis F29 Generalized anxiety disorder F41.1 Nicotine dependence, cigarettes, uncomplicated F17.210 Schizophrenia F20.9
--- NOTE | 2021-11-04 12:54 | DCPLANNER ---
IMM completed with pt 11/04/21 @ 2202. Pt was given a copy of rights and he stated he understood his rights.
[2021-11-04 13:03] VITALS: BP 132/88; PULSE 62; RESP 18; TEMP 36.7; O2SAT 97
== END 2021-11-04 15:44 | disposition home or self-care (01) | DRG 885 ==
LOC: ER 19:53 → NP 21:11
PROVIDERS: Admitting Provider Psychiatry & Neurology Psychiatry; Emergency Provider Emergency Medicine; Visit Provider Psychiatry & Neurology Psychiatry
DX: F25.1 Schizoaffective disorder, depressive type (principal); R45.851 Suicidal ideations; F41.1 Generalized anxiety disorder; F17.210 Nicotine dependence, cigarettes, uncomplicated
CPT/HCPCS: 71045; 80053; 80306; 80307; 83690; 84439; 84443; 85025; 93005; 97150; 97165; 99285

== ENCOUNTER → 2022-09-08 10:16 | Outpatient (BNVA) | payer MEDICARE, MEDICAID, OTHER, SELFPAY | PROVIDERS: Visit Provider Nurse Practitioner | DX: Z79.899 Other long term (current) drug therapy (principal) | CPT/HCPCS: 80061; 83036 ==

== ENCOUNTER → 2024-01-21 13:56 | Outpatient (BNVA) | payer MEDICARE, MEDICAID, SELFPAY | PROVIDERS: PCP Nurse Practitioner; Visit Provider Nurse Practitioner | DX: Z79.899 Other long term (current) drug therapy (principal) | CPT/HCPCS: 80061; 83036 ==